=== PATIENT | male | born 1975 | race Two or more races ===

== ENCOUNTER → 2017-09-05 | Outpatient (CLI) | payer OTHER ==
[~2017-09-05] MED LIST: PROHANCE 279.3MG/ML 15ML VIAL (A9576) As Ordered; PROHANCE 279.3MG/ML 5ML VIAL (A9576) As Ordered
== END ==
LOC: M RAD 16:56
DX: R20.1 Hypoesthesia of skin (principal)
CPT/HCPCS: A9576

== ENCOUNTER → 2017-09-26 | Outpatient (CLI) | payer OTHER ==
[2017-09-26 13:01] LABS: RHEUMATOID FACTOR QUANT < 10.0 IU/ML (<15.0); TOTAL PROTEIN 6.7 GM/DL (6.4-8.2)
[2017-09-26 13:01] LABS: CPK CREATINE PHOSPHOKINASE 194 U/L (39-308)
[2017-09-26 13:48] LABS: ERYTHROCYTE SEDIMENTATION RATE 1 mm/hr (0-15)
[2017-09-26 14:34] LABS: VITAMIN B12 LEVEL 283 PG/ML
[2017-09-26 14:44] LABS: FOLATE 15.1 NG/ML
[2017-09-27 14:17] LABS: ANTI DOUBLE STRAND-DNA AB 1 IU/mL (0-9); ANTINUCLEAR ANTIBODIES DIRECT Positive (Negative); RNP ANTIBODIES 0.3 AI (0.0-0.9); SJOGREN'S ANTI SS-A <0.2 AI (0.0-0.9); SJOGREN'S ANTI SS-B <0.2 AI (0.0-0.9); SMITH ANTIBODIES 1.4 AI (0.0-0.9)
[2017-10-01 07:22] LABS: DRVV SCREEN 45.4 SEC
[2017-10-01 07:27] LABS: PTT LUPUS TYPE ANTICOAG SCREEN 1.1 (0-1.2)
[2017-10-01 14:12] LABS: ALBUMIN 4.36 GM/DL (3.29-5.55); ALPHA-1-GLOBULIN % 3.2 % (2.9-4.9); ALPHA-1-GLOBULINS 0.21 GM/DL (0.17-0.41); ALPHA-2-GLOBULINS 0.59 GM/DL (0.42-0.99); ALPHA-2-GLOBULINS % 8.8 % (7.1-11.8); BETA-1-GLOBULINS 0.36 GM/DL (0.28-0.60); BETA-1-GLOBULINS % 5.3 % (4.7-7.2); BETA-2-GLOBULINS 0.31 GM/DL (0.19-0.55); BETA-2-GLOBULINS % 4.7 % (3.2-6.5)
[2017-10-01 14:13] LABS: GAMMA GLOBULINS 0.87 GM/DL (0.65-1.58)
== END ==
LOC: M LAB 11:42
DX: G62.9 Polyneuropathy, unspecified (principal)
CPT/HCPCS: 82550

== ENCOUNTER 2019-06-16 16:13 | Inpatient (IN) | payer OTHER ==
[~2019-06-16] VITALS: Ht 180.3 cm; Wt 85.9 kg
[2019-06-16] MEDS ORDERED: ISOVUE-370 76% 100ML VIAL (Q9967) As Ordered ONE (16:29)
--- NOTE | 2019-06-16 16:59 | REP ---
Clinical: Acute cerebrovascular accident . Comparison: None . Findings: The mediastinum and cardiac silhouette are stable and within normal limits for portable technique. The lung casillas are clear without acute consolidation, effusion, or pneumothorax. Skeletal structures are intact. Impression: No acute cardiopulmonary process appreciated. Electronically Signed by Barak Ly MD 06/16/2019 04:50 P
--- NOTE | 2019-06-16 17:03 | REP ---
Head CT without contrast: History: Neurologic symptoms. Comparison study: Comparison brain MRI study is from September 05, 2017. CT findings: Bone window settings demonstrate an intact bony calvarium. There is no evidence of skull fracture or incidental bony calvarial lesion. The visualized paranasal sinuses appear clear. No intraorbital abnormality is seen. On soft tissue window setting images; the lateral, third, and fourth ventricles are normal in size and position. Pete-white differentiation pattern is normal above and below the tentorium. There are is no evidence of intracranial hemorrhage. No mass, edema, infarction, or midline shift is seen. No extra-axial fluid collection is appreciated. Impression: Negative noncontrast head CT. Electronically Signed by Javi Luther MD 06/16/2019 04:54 P
[2019-06-16 17:13] LABS: VENOUS BASE EXCESS 2.3 (-2.0-2.0); VENOUS HCO3 29.4 MEQ/L (23.0-27.0); VENOUS O2 SATURATION 72.1 % (60.0-80.0); VENOUS PARTIAL PRESSURE CO2 54.8 mmHg (38.0-50.0); VENOUS PH 7.347 UNITS (7.330-7.430); VENOUS STANDARD HCO3 25.8 MEQ/L; VENOUS TOTAL CO2 31.1 MEQ/L (24.0-28.0)
[2019-06-16 17:24] LABS: BASO % 0.2 % (0.0-1.0); EOS % 0.1 % (0.0-3.0); HEMATOCRIT 44.8 % (42.0-52.0); HEMOGLOBIN 14.8 g/dl (13.5-17.5); LYMPH # 1.1 10^3/uL (1.5-5.0); LYMPH % 11.4 % (24.0-44.0); MEAN CORPUSCULAR HEMOGLOBIN 28.1 pg (27.0-33.0); MONO # 0.4 10^3/uL (0.0-0.8); MONO % 3.9 % (0.0-5.0); NEUTROPHILS # 7.9 10^3/uL (1.5-8.5); NEUTROPHILS % 84.1 % (36.0-66.0); PLATELET COUNT, AUTOMATED 218 10^3/uL (150-450); RED BLOOD COUNT 5.27 10^6/uL (4.30-6.10); WHITE BLOOD COUNT 9.4 10^3/uL (4.0-10.0)
[2019-06-16 17:37] LABS: INR 1.17; PARTIAL THROMBOPLASTIN TIME 31.8 SECONDS (25.0-38.4); PROTHROMBIN TIME 14.6 SECONDS (11.8-14.0)
--- NOTE | 2019-06-16 17:42 | REP ---
CT angiography of the carotids with IV contrast: History: Altered mental status. CT contrast dose: 100 ml of intravenous Isovue 370. No comparison study. CT findings: The thoracic aorta arch is intact and homogeneously enhances. Great vessel origins are unremarkable as seen. There is some spray artifact from un-opacified blood in the venous structures in the upper mediastinum. The common carotid arteries are unremarkable bilaterally. The cervical segments of the vertebral arteries are intact and symmetric. Carotid bifurcations are clear bilaterally. There is no evidence to suggest carotid artery dissection or stenosis. The cervical internal carotid arteries are unremarkable and symmetric. Right internal jugular vein is smaller than the left but appears patent. Impression: Unremarkable carotid and cervical CT angiography. Electronically Signed by Javi Luhter MD 06/17/2019 07:46 A
--- NOTE | 2019-06-16 17:42 | REP ---
CT angiography of the brain with IV contrast: History: CVA. CT contrast dose: 100 ml of intravenous Isovue 370. Comparison MRI study of the brain September 05, 2017. Findings: Preliminary digital oil scout radiographs are remarkable. The distal vertebral arteries are patent bilaterally and codominant. Basilar artery appears widely patent. Posterior cerebral and superior cerebellar arteries are normal and symmetric. The distal internal carotid arteries are unremarkable. The anterior and middle cerebral arteries have an intact appearance bilaterally. There is no visible south aneurysm or arteriovenous malformation. Maximal intensity projection images show no other arterial abnormality. The straight sinus, sagittal sinus, and sigmoid sinuses are bilaterally patent. The right sigmoid sinus is hypoplastic compared to the left. The right internal jugular vein is quite a bit smaller than the left internal jugular vein. No other abnormality. Impression: Asymmetry of the sigmoid sinuses, left dominant in size compared to right. Otherwise unremarkable CT angiography of the brain with IV contrast. Electronically Signed by Javi Luther MD 06/17/2019 07:46 A
[2019-06-16 17:53] LABS: OSMOLALITY SERUM 289 MOSM/KG (275-295)
[2019-06-16] MEDS ORDERED: HALOPERIDOL 5 MG/ML VIAL (J1630) IM STA (17:55)
[2019-06-16] MEDS ORDERED: HALOPERIDOL 5 MG/ML VIAL (J1630) As Ordered ONE (17:56)
[2019-06-16] MEDS ORDERED: LORazepam 2 MG/ML VIAL (J2060) As Ordered ONE (17:57)
[2019-06-16] MEDS ORDERED: LORazepam 2 MG/ML VIAL (J2060) IM STA (17:57)
[2019-06-16 17:58] LABS: ACETAMINOPHEN LEVEL < 2.0 UG/ML (10.0-30.0); ALBUMIN 3.8 GM/DL (3.2-5.2); ALT/SGPT 36 U/L (12-78); BILIRUBIN,DIRECT 0.1 MG/DL (0.0-0.2); BILIRUBIN,TOTAL 0.6 MG/DL (0.2-1.0); BLOOD UREA NITROGEN 11 MG/DL (7-18); CALCIUM LEVEL 8.2 MG/DL (8.5-10.1); CARBON DIOXIDE LEVEL 28 MEQ/L (21-32); CHLORIDE LEVEL 104 MEQ/L (98-107); CK-MB VALUE MASS < 1.0 NG/ML (<3.6); CPK CREATINE PHOSPHOKINASE 85 U/L (39-308); CREATININE FOR GFR 1.07 MG/DL (0.70-1.30); ETHYL ALCOHOL (ETHANOL) < 0.003 % (0.000-0.010); GLOMERULAR FILTRATION RATE > 60.0 (>60); GLUCOSE, FASTING 107 MG/DL (70-100); MB/CK RELATIVE INDEX 1.18 (< OR =4); POTASSIUM SERUM 3.8 MEQ/L (3.5-5.1); SALICYLATE LEVEL < 1.7 MG/DL (5.0-30.0); SODIUM LEVEL 138 MEQ/L (136-145); THYROID STIMULATING HORMONE 0.491 uIU/ML (0.358-3.740); TOTAL PROTEIN 6.6 GM/DL (6.4-8.2); TROPONIN I < 0.02 NG/ML (< 0.10)
[2019-06-16] MEDS ORDERED: NS 1,000 ML IV ONE ×3 (18:00→21:15)
[2019-06-16 18:09] LABS: C REACTIVE PROTEIN QUANTITATIV < 0.30 MG/DL (0.00-0.30)
[2019-06-16] MEDS ORDERED: IBUP200T45 PO (18:51)
[2019-06-16] MEDS ORDERED: THRIVE PO (18:51)
[2019-06-16 19:09] LABS: ERYTHROCYTE SEDIMENTATION RATE 2 mm/hr (0-15)
[2019-06-16 19:56] LABS: INFLUENZA A AMPLIFICATION NEGATIVE (NEGATIVE); INFLUENZA B AMPLIFICATION NEGATIVE (NEGATIVE)
[2019-06-16] MEDS ORDERED: HALOPERIDOL 5 MG/ML VIAL (J1630) IV ONE (20:15)
--- NOTE | 2019-06-16 20:33 | ECGEPIP ---
[facility] - ED Test Date: 2019-06-16 Pat Name: CHERELLE VILA Department: Room: - Gender: Male Equity Manager: inocencia quijano : 1975 Requested By: MACY Joseph Order Number: [id number] Reading MD: Amy Edmond Measurements Intervals Alanson Rate: 101 P: 48 OR: 204 QRS: 69 QRSD: 106 T: 9 QT: 337 QTc: 439 Interpretive Statements SINUS TACHYCARDIA LEFT ATRIAL ENLARGEMENT INCOMPLETE RIGHT BUNDLE BRANCH BLOCK NO PRIOR Electronically Signed on 06-16-2019 20:33:42 EST by Amy Edmond
[2019-06-16 20:35] LABS: AMPHETAMINES LEVEL URINE NEGATIVE (NEGATIVE); BARBITURATES URINE NEGATIVE (NEGATIVE); BENZODIAZEPINES URINE NEGATIVE (NEGATIVE); CANNABINOIDS URINE NEGATIVE (NEGATIVE); COCAINE METABOLITE URINE NEGATIVE (NEGATIVE); METHADONE URINE NEGATIVE (NEGATIVE); OPIATES URINE NEGATIVE (NEGATIVE); PHENCYCLIDINE URINE NEGATIVE (NEGATIVE)
--- NOTE | 2019-06-16 20:59 | HPE ---
DATE OF ADMISSION: 06/16/2019 CHIEF COMPLAINT: Altered mental status. 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 this morning when the patient came to work. According to the medic at the bedside, the patient was very slow with his speech and not quite himself. He was slow but appropriate but worsened throughout the day. At around 3:30 p.m., the patient was noted to be shaking. When he was asked what he ate for breakfast or whether he ate, the patient said, "yes." The patient was not able to tell them his age and stated his date of instead. When they asked him whether he had been drinking water, the patient could not answer. His hand was very shaky. They called his and brought him to the emergency room. According to the at the bedside, on arrival in the emergency room, the patient was able to tell staff members that she was a relative and he recognized his children. He was normal yesterday around 11:00 p.m., ate dinner at home, left over [employer], which he heated up and had fruit and yogurt for snack before he went to bed. Last night, the patient was urinating three to four times, went to the bathroom. No confusion at that time. No gait instability. He has had no recent travel. No fever or chills according to the . The mentioned that he did not have any cough, shortness of breath, neck pain, diarrhea, nausea or vomiting. No changes in weight. On Saturday, the patient did have a headache and took some ibuprofen. This was not unusual, according to the . He denies any neck pain or neck rigidity. In the emergency room, per emergency room physician Dr. Brian Lebron, his neuro examination was normal. He had receptive aphasia and subsequent resulted expressive aphasia. The patient was found to have low grade temperature of 100.6. He would not cooperate to open his mouth for vital signs and therefore he received some Ativan when they tried to take this rectally. Since then, at 7:00 p.m., the patient has not been himself. CT of the head was unremarkable. No signs of stroke. CTA was also negative. The patient was dry. Urinalysis could not be obtained. Catheterization was attempted but had no yield. The patient received 1 liter of fluids. Complete blood count (CBC) and metabolic panel were within normal limits, as well as ammonia levels and liver function tests. Cardiac markers, C-reactive protein and sedimentation rate were negative. TSH was also normal. Per Dr. Grigsby, neurologist communications tower climber, obtain MRI of the brain, no lumbar puncture unless it is positive for possible encephalitis. PAST MEDICAL HISTORY: None. PAST SURGICAL HISTORY: The patient had stitches on the right forearm from when he slammed his arm through glass years ago. ALLERGIES: No known drug allergies. SOCIAL HISTORY: Lives with at home. 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 No alcohol or drug use. No smoking history. Originally from [place]. No recent travel. FAMILY HISTORY: Mother is schizophrenic and diabetic. Father with a history of bipolar. REVIEW OF SYSTEMS: Could not be obtained as the patient is confused. History is obtained from the patient's . PHYSICAL EXAMINATION: VITAL SIGNS: Temperature 100.6, pulse 102 sinus, respiratory rate 20, blood pressure 172/97, 99% on room air. The patient is not cooperative. He has receptive and expressive aphasia. Not answering questions. Just looks at his and coworker at the bedside. He is anicteric. No jaundice. The patient has no neck rigidity. He is not cooperative with examination. Unable to state his name, date of , where he is, season, year. Face is symmetric. The patient does not follow commands. He would not stick his tongue out. The patient is in four point restraints. LUNGS: Clear to auscultation. No wheezing or rales or rhonchi. HEART: S1, S2. Sinus tachycardia. No murmurs, rubs or gallops. ABDOMEN: Soft, nontender, nondistended. Positive bowel sounds times four quadrants. EXTREMITIES: No cyanosis, clubbing or pitting edema. The patient has a well healed scar on the right forearm from previous laceration. LABORATORY DATA: White count 9.4, hemoglobin 14, hematocrit 44, platelet count 218, 84% neutrophils, no bandemia, sed rate is 2. Sodium 138, potassium 3.9, chloride 104, bicarbonate 28, BUN 11, creatinine 1.07, glucose 107, lactic acid 1.4, calcium 8.2, total bilirubin 0.6, direct bilirubin 0.1, AST 40, ALT 36, alkaline phosphatase 62, ammonia 19, total CK 85, MB fraction less than 1, relative index 1.18, troponin less than 0.02, C-reactive protein less than 0.3, total protein 6.6, albumin 3.8, TSH 0.491, salicylate less than 1.7, acetaminophen less than 2, ethyl alcohol less than 0.003. Influenza A and B are negative. Glucose is 119. Two sets of blood cultures are pending. IMAGING STUDIES: 06/16/2019 CT negative non-contrast head CT. Chest x-ray 06/16/2019 showed no acute cardiopulmonary process. CTA of the brain showed asymmetry of the sigmoid sinuses, less dominant as that compared to the right, otherwise unremarkable CT of the brain with IV contrast. CTA of the neck showed normal carotid and cervical CT angiography. 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 CTA was negative. Dr. Baltazar Grigsby has been consulted. ACUTE ISSUES: 1. Altered mental status. The patient initially had receptive aphasia and now has expressive aphasia after Ativan has been given. CTA of the head and CT of the head were negative. Per Dr. Baltazar Grigsby, MRI of the brain and possible lumbar puncture if positive edema. normal ammonia level, bicarbonate, creatinine, esr, white count. cxr no pneumonia. ua sent. no lumbar puncture per Dr. Grigsby, unless abnormal MRI with edema. no empiric antibiotics or antivirals. check respiratory panel, urine toxicology screen. check RPR, DEISY. 2. Fever. Urinalysis and chest x-ray are negative. Influenza A and B are negative. Obtain respiratory panel. UA after 2 liters of intravenous bolus and culture if appropriate.Rule out meningitis with lumbar puncture if positive findings on MRI of the brain. 4. Hypertension. Most likely due to agitation. Intravenous Lopressor with holding parameters. 5. Abnormal EKG with incomplete right bundle branch block. No acute ischemic complaints. The patient's troponin is negative. 6. Deep vein thrombosis (DVT) prophylaxis. Compression stockings for now. The patient may need lumbar puncture at a later time. CODE STATUS: FULL CODE. MTDD
--- NOTE | 2019-06-16 21:52 | REPVR ---
PROCEDURE INFORMATION: Exam: MR Head Without Contrast Exam date and time: 06/16/2019 9:20 PM Age: 43 years old Clinical indication: Alteration of consciousness and altered mental status/memory loss and speech disturbance; Transient alteration of awareness; Confusion or disorientation; Aphasia; Patient HX: Total AMS; Additional info: AMS expressive aphasia TECHNIQUE: Imaging protocol: MR of the head without contrast. COMPARISON: MRI-Brain W/O FOLL BY WITH 09/05/2017 6:10 PM FINDINGS: Ventricles demonstrate normal size and configuration. Major vascular flow voids at the skull base are preserved. No extra-axial fluid collection. No midline shift or intracranial mass effect. No pathologic white-matter signal or cerebral edema. No diffusion restriction. Small right-sided mastoid effusion. Trace paranasal sinus mucosal disease. IMPRESSION: No acute intracranial abnormality. Electronically signed by: Sagar Zhou On 06/16/2019 21:52:20 PM
[2019-06-16] MEDS ORDERED: diphenhydrAMINE INJ 50MG/ML VIAL (J1200) As Ordered ONE (22:05)
[2019-06-16] MEDS: ACETAMINOPHEN 650 MG SUPP PR PRN (22:14)
[2019-06-16] MEDS: diphenhydrAMINE INJ 50MG/ML VIAL (J1200) IV PRN (22:14)
[2019-06-16] MEDS: HALOPERIDOL 5 MG/ML VIAL (J1630) IV PRN (22:14)
[2019-06-16] MEDS ORDERED: KETOROLAC 30 MG/ML VIAL (J1885) IV PRN (22:15)
[2019-06-16] MEDS: METOPROLOL 5 MG/5 ML VIAL IV SCH (22:17)
[2019-06-16 22:29] VITALS: BP 139/69
[2019-06-16 23:00] VITALS: BP 131/67
[2019-06-17] VITALS (8 sets, daily range): BP systolic 118–155; BP diastolic 65–96
[2019-06-17] MEDS: METOPROLOL 5 MG/5 ML VIAL IV SCH ×4 (03:00→20:48)
[2019-06-17] MEDS: HALOPERIDOL 5 MG/ML VIAL (J1630) IV PRN (03:37)
[2019-06-17] MEDS: diphenhydrAMINE INJ 50MG/ML VIAL (J1200) IV PRN ×2 (03:37→05:30)
--- NOTE | 2019-06-17 04:12 | IPNPDOC ---
Date Seen The patient was seen on 06/17/19. Progress Note Empiric IV ceftriaxone and IV acyclovir for possible acute meningitis -discussed with care companion neurologist, Dr. Grigsby, regarding fever 101.2 and AMS, despite negative meningeal signs. -decadron 4mg bid x 3days, iv ceftriaxone 30 minutes after decadron, iv acyclovir -per anesthesiologist care companion, anesthesia unable to do LP -urgent LP ordered, and empiric abx ordered. -droplet isolation precautions VS, I&O, 24H, Fishbone Vital Signs/I&O Vital Signs Date Time Temp Pulse Resp B/P (MAP) Pulse Ox O2 Delivery O2 Flow Rate FiO2 06/17/19 03:00 82 124/75 06/17/19 01:00 Room Air 06/17/19 00:00 100.3 92 06/16/19 22:29 18 I&O- Last 24 Hours up to 6 AM 06/17/19 06:00 Intake Total 1000 ml Balance 1000 ml Laboratory Data 24H LABS Laboratory Tests 2 06/16/19 16:29: Bedside Glucose (Misc Panel) 119H 06/16/19 16:55: Lactic Acid Level 1.4 06/16/19 16:56: Prothrombin Time 14.6H, Prothromb Time International Ratio 1.17, Activated Partial Thromboplast Time 31.8, Blood Gas Bicarbonate Standard 25.8, Venous Blood pH 7.347, Venous Blood Partial Pressure CO2 54.8H, Venous Blood Partial Pressure O2 39.0, Venous Blood Total Carbon Dioxide 31.1H, Venous Blood HCO3 29.4H, Venous Blood Oxygen Saturation 72.1, Venous Blood Base Excess 2.3H, Anion Gap 6L, Glomerular Filtration Rate > 60.0, Osmolality 289, Calcium Level 8.2L, Total Bilirubin 0.6, Direct Bilirubin 0.1, Aspartate Amino Transf (AST/SGOT) 14, Alanine Aminotransferase (ALT/SGPT) 36, Alkaline Phosphatase 62, Total Creatine Kinase 85, Creatine Kinase MB < 1.0, Creatine Kinase MB Relative Index 1.18, Troponin I < 0.02, C-Reactive Protein, Quantitative < 0.30, Total Protein 6.6, Albumin 3.8, Albumin/Globulin Ratio 1.36, Thyroid Stimulating Hormone (TSH) 0.491, Salicylates Level < 1.7L, Acetaminophen Level < 2.0L, Ethyl Alcohol Level < 0.003 06/16/19 16:57: Immature Granulocyte % (Auto) 0.3, Neutrophils (%) (Auto) 84.1H, Lymphocytes (%) (Auto) 11.4L, Monocytes (%) (Auto) 3.9, Eosinophils (%) (Auto) 0.1, Basophils (%) (Auto) 0.2, Neutrophils # (Auto) 7.9, Lymphocytes # (Auto) 1.1L, Monocytes # (Auto) 0.4, Eosinophils # (Auto) 0.0, Basophils # (Auto) 0.0, Nucleated Red Blood Cells % (auto) 0.0, Erythrocyte Sedimentation Rate 2, Ammonia 19 06/16/19 19:14: Influenza Type A (RT-PCR) NEGATIVE, Influenza Type B (RT-PCR) NEGATIVE 06/16/19 19:57: Urine Color YELLOW, Urine Appearance CLEAR, Urine pH 6.0, Urine Specific Donnelly >1.060H, Urine Protein NEGATIVE, Urine Glucose (UA) NEGATIVE, Urine Ketones NEGATIVE, Urine Blood NEGATIVE, Urine Nitrite NEGATIVE, Urine Bilirubin NEGATIVE, Urine Urobilinogen 0.2, Urine Leukocyte Esterase NEGATIVE, Urine WBC ( Auto) 0, Urine RBC (Auto) 8H, Urine Hyaline Casts (Auto) 0, Urine Bacteria (Auto) NEGATIVE, Urine Squamous Epithelial Cells 0, Urine Sperm (Auto) , Urine Opiates Screen NEGATIVE, Urine Methadone Screen NEGATIVE, Urine Barbiturates Screen NEGATIVE, Urine Phencyclidine Screen NEGATIVE, Urine Amphetamines Screen NEGATIVE, Urine Benzodiazepines Screen NEGATIVE, Urine Cocaine Metabolite Screen NEGATIVE, Urine Cannabinoids Screen NEGATIVE CBC/BMP Laboratory Tests 06/16/19 16:56 06/16/19 16:57 Microbiology Microbiology 06/16/19 Blood Culture, Received Pending 06/16/19 Respiratory Virus Panel (PCR) ([facility]) - Final, Complete 06/16/19 Blood Culture, Received Pending FREDY LÓPEZ MD Jun 17, 2019 04:12
[2019-06-17] MEDS ORDERED: ACYCLOVIR IV SCH (04:15)
[2019-06-17] MEDS ORDERED: FLUID PLACE HOLDER IV SCH (04:15)
[2019-06-17] MEDS: dexameTHASONE 4 MG/ML 1ML VIAL (J1100) IV SCH ×2 (04:18→17:29)
[2019-06-17] MEDS: NS 1,000 ML IV SCH ×3 (04:18→19:20)
[2019-06-17 04:24] LABS: BASO % 0.3 % (0.0-1.0); EOS # 0.2 10^3/uL (0.0-0.5); EOS % 2.1 % (0.0-3.0); HEMATOCRIT 44.8 % (42.0-52.0); HEMOGLOBIN 14.7 g/dl (13.5-17.5); LYMPH # 1.5 10^3/uL (1.5-5.0); LYMPH % 19.9 % (24.0-44.0); MEAN CORPUSCULAR HEMOGLOBIN 28.2 pg (27.0-33.0); MEAN CORPUSCULAR HGB CONC 32.8 g/dl (32.0-36.5); MEAN CORPUSCULAR VOLUME 85.8 fl (80.0-96.0); MONO # 0.5 10^3/uL (0.0-0.8); MONO % 6.2 % (0.0-5.0); NEUTROPHILS # 5.3 10^3/uL (1.5-8.5); NEUTROPHILS % 71.2 % (36.0-66.0); PLATELET COUNT, AUTOMATED 201 10^3/uL (150-450); RED BLOOD COUNT 5.22 10^6/uL (4.30-6.10); WHITE BLOOD COUNT 7.5 10^3/uL (4.0-10.0)
[2019-06-17] MEDS ORDERED: dexameTHASONE 4 MG/ML 1ML VIAL (J1100) IV SCH (04:30)
[2019-06-17 04:42] LABS: ERYTHROCYTE SEDIMENTATION RATE 2 mm/hr (0-15)
[2019-06-17] MEDS: cefTRIAXone SOD 2 GM in D5W MINI-BAG PLUS 50 ML IV SCH ×2 (04:46→17:29)
[2019-06-17 04:54] LABS: BLOOD UREA NITROGEN 10 MG/DL (7-18); C REACTIVE PROTEIN QUANTITATIV < 0.30 MG/DL (0.00-0.30); CALCIUM LEVEL 8.6 MG/DL (8.5-10.1); CARBON DIOXIDE LEVEL 28 MEQ/L (21-32); CHLORIDE LEVEL 113 MEQ/L (98-107); CHOLESTEROL LEVEL 155 MG/DL (<200); CHOLESTEROL RISK RATIO 3.522 (<5); CREATININE FOR GFR 1.19 MG/DL (0.70-1.30); GLOMERULAR FILTRATION RATE > 60.0 (>60); GLUCOSE, FASTING 105 MG/DL (70-100); HDL CHOLESTEROL 44 MG/DL (>40); LDL CHOLESTEROL 90 MG/DL (<100); NON-HDL-C 111 MG/DL; POTASSIUM SERUM 4.6 MEQ/L (3.5-5.1); SODIUM LEVEL 141 MEQ/L (136-145); TRIGLYCERIDES LEVEL 106 MG/DL (<150)
[2019-06-17] MEDS ORDERED: PROHANCE 279.3MG/ML 5ML VIAL (A9576) As Ordered ONE (05:08)
[2019-06-17] MEDS ORDERED: PROHANCE 279.3MG/ML 15ML VIAL (A9576) As Ordered ONE (05:09)
[2019-06-17] MEDS ORDERED: PROMETHAZINE INJ 25 MG/ML VIAL (J2550) As Ordered ONE (05:21)
[2019-06-17] MEDS ORDERED: PROMETHAZINE INJ 25 MG/ML VIAL (J2550) IV ONE (05:30)
[2019-06-17] MEDS ORDERED: HALOPERIDOL 5 MG/ML VIAL (J1630) IV ONE (05:30)
[2019-06-17] MEDS: LORazepam 2 MG/ML VIAL (J2060) IV PRN (05:30)
[2019-06-17] MEDS: ACYCLOVIR 1,000 MG in NS 250 ML IV SCH ×2 (06:01→13:04)
--- NOTE | 2019-06-17 06:13 | REPVR ---
PROCEDURE INFORMATION: Exam: MR Head With Contrast Exam date and time: 06/17/2019 5:58 AM Age: 43 years old Clinical indication: Altered mental status/memory loss; Confusion or disorientation; Patient HX: Aphasia, total AMS. PT was given 19cc prohance, PT was medicated multiple times in order to attempt scan, best images due to PT condition. Images sent to [facility] TECHNIQUE: Imaging protocol: MR of the head with intravenous contrast. Contrast material: PROHANCE; Contrast volume: 19 ml; Contrast route: 20G; COMPARISON: MRI-Brain without Contrast 06/16/2019 8:54 PM FINDINGS: Brain: Patient returned for postcontrast imaging to followup a normal noncontrast MRI performed 06/16/2018. Examination is extremely limited due to patient motion artifact. Ventricles: Normal. No ventriculomegaly. Bones/joints: Unremarkable. Soft tissues: Unremarkable. Sinuses: Normal as visualized. No acute sinusitis. Mastoid air cells: Normal as visualized. No mastoid effusion. Orbits: Unremarkable. IMPRESSION: Patient returned for postcontrast imaging to followup a normal noncontrast MRI performed 06/16/2018. Examination is extremely limited due to patient motion artifact. Within the limitations of this exam, no abnormal enhancement is identified. Electronically signed by: Vargas Langston On 06/17/2019 06:12:27 AM
--- NOTE | 2019-06-17 12:34 | REP ---
Clinical: Abdominal pain. Technique: Axial noncontrast images from the lung bases to the pubic symphysis with coronal and sagittal re-formations. Findings: Examination is limited by motion artifact and streak artifact from the upper extremities at the level of the lower chest/upper abdomen. Lung bases demonstrate mild bibasilar atelectasis and small pleural reactions. Liver, spleen, pancreas, gallbladder, bilateral adrenal glands and kidneys are grossly normal for noncontrast evaluation. The enteric system is without obstruction or acute inflammatory process. Normal terminal ileum and appendix are identified in the right lower quadrant. Fluid-filled loops of small bowel may suggest enteritis and should be correlated clinically. Green catheter identified within the bladder. Prostate gland and seminal vesicles are age-appropriate. Trace ascites in the pelvis. No free air. No adenopathy. Abdominal aorta without aneurysm. Musculoskeletal structures without focal abnormality. Impression: 1. Mild bibasilar atelectasis and small pleural reactions. 2. No significant abdominopelvic pathology is appreciated although mild enteritis cannot be excluded. Electronically Signed by Barak Ly MD 06/17/2019 12:26 P
--- NOTE | 2019-06-17 17:00 | IPNPDOC ---
Text Note Date of Service The patient was seen on 06/17/19. NOTE Subjective: -None verbal this morning -shifting positions a lot, appears uncomfortable -remains hemodynamically stable, afebrile, on room air Objective: GEN: appeats to be in a mild distress with constant shifting, well developed, well nourished man HEENT: NCAT, PERRLA, anicteric, non injected, dry MM Neck: no adenopathy or thyromegaly Pulm: CTAB Cardiac: RRR, no mrg Abd: normoactive, soft, unclear if grimacing with exam and shifting, no organomegaly or distention Ext: WWP, no Le edema, good peripheral pulses neuro: somnolent, opens eyes lightly to name but nonverbal, not following commands, moving all extremities spontaneously with full strength and good tone, negative kernig's and brudzinski. Labs: WBC 7.5, Hgb 14.7, Gct 44.8, platelets 201, Na 141, K 4.6, Cr 1.19, CRP 0.3, TSH 0.491, UA bland, flu panel negative, RPR negative, respiratory panel negative, tox screen negative, pending BCx. Imaging: CT and CTA head without abnormalities, MRI brain without contrast within normal limits, MRI brain w/ contrast imaging had too much motion defect Assessment: 43 yo active , previously healthy man who had acute mental status changes and is now functionally unresponsive with thus far grossly negative work up. 1. Altered mental status. -The patient initially had receptive aphasia and now has expressive aphasia after Ativan has been given. -CTA of the head and CT of the head were negative. -normal ammonia level, bicarbonate, creatinine, esr, white count. cxr no pneumonia. ua sent. Resp panel negative, U tox negative, RPR negative, DEISY pending. -MRI brain negative, best images were obtained prior to contrast, and had too much motion on the contrast phase, otherwise negative for acute process -pending LP with studies ordered -pending EEG 2. Fever. Urinalysis and chest x-ray are negative. Influenza A and B are negative. Respiratory panel negative. -Rule out meningitis and encephalitis with lumbar puncture -continue empiric ceftriaxone and acyclovir 4. Hypertension: in the setting of agitation. No history at baseline -IV metop with holding parameters. 5. Abnormal EKG with incomplete right bundle branch block. No acute ischemic complaints. With normal troponins. -continue on telemetry 6. Deep vein thrombosis (DVT) prophylaxis. Compression stockings for now. Pending lumbar puncture. Dispo: PCU, boarding in the ICU, pending evaluation by Dr. Grigsby, to evaluate if appropriate for transfer to [facility] VS,Fishbone, I+O VS, Fishbone, I+O Laboratory Tests 06/16/19 16:56 06/16/19 16:57 06/17/19 04:12 Vital Signs Date Time Temp Pulse Resp B/P (MAP) Pulse Ox O2 Delivery O2 Flow Rate FiO2 06/17/19 12:00 100.2 94 22 141/86 (104) 94 Room Air I&O- Last 24 Hours up to 6 AM 06/17/19 06:00 Intake Total 3000 ml Output Total 350 ml Balance 2650 ml SANIA MCNALLY MD Jun 17, 2019 17:00
[2019-06-17 17:49] LABS: APPEARANCE, CSF TURBID (CLEAR); COLOR, CSF RED (COLORLESS); CSF TUBE# CELL CNT TUBE 1
[2019-06-17 17:50] LABS: APPEARANCE, CSF CLEAR (CLEAR); COLOR, CSF COLORLESS (COLORLESS); CSF TUBE# CELL CNT TUBE 4
[2019-06-17 18:05] LABS: CSF TUBE# GLU TUBE 2; CSF TUBE# TP TUBE 2; GLUCOSE CSF 58 MG/DL (40-75); TOTAL PROTEIN,CSF 100 MG/DL (15-45)
[2019-06-17] MEDS ORDERED: AMPICILLIN SOD 2 GM in D5W MINI-BAG PLUS 100 ML IV SCH (19:00)
[2019-06-17] MEDS ORDERED: TUBERCULIN PPD 5 UNITS/0.1 ML ID ONE ×2 (21:00→22:00)
[2019-06-17] MEDS ORDERED: PPD DOCUMENTATION ENTRY MISC ID ONE (21:00)
[2019-06-18] VITALS (26 sets, daily range): BP systolic 106–205; BP diastolic 53–130; O2SAT 98
[2019-06-18] MEDS: NS 1,000 ML IV SCH ×3 (00:19→13:15)
[2019-06-18] MEDS: dexameTHASONE 4 MG/ML 1ML VIAL (J1100) IV SCH ×2 (03:03→15:58)
[2019-06-18] MEDS: METOPROLOL 5 MG/5 ML VIAL IV SCH ×2 (03:04→09:44)
[2019-06-18] MEDS: cefTRIAXone SOD 2 GM in D5W MINI-BAG PLUS 50 ML IV SCH ×2 (03:43→15:58)
[2019-06-18 04:54] LABS: HEMATOCRIT 45.5 % (42.0-52.0); HEMOGLOBIN 14.8 g/dl (13.5-17.5); MEAN CORPUSCULAR HEMOGLOBIN 27.5 pg (27.0-33.0); MEAN CORPUSCULAR HGB CONC 32.5 g/dl (32.0-36.5); MEAN CORPUSCULAR VOLUME 84.4 fl (80.0-96.0); PLATELET COUNT, AUTOMATED 205 10^3/uL (150-450); RED BLOOD COUNT 5.39 10^6/uL (4.30-6.10); WHITE BLOOD COUNT 9.7 10^3/uL (4.0-10.0)
[2019-06-18 05:13] LABS: BLOOD UREA NITROGEN 15 MG/DL (7-18); CALCIUM LEVEL 8.6 MG/DL (8.5-10.1); CARBON DIOXIDE LEVEL 28 MEQ/L (21-32); CHLORIDE LEVEL 104 MEQ/L (98-107); CREATININE FOR GFR 1.03 MG/DL (0.70-1.30); GLOMERULAR FILTRATION RATE > 60.0 (>60); GLUCOSE, FASTING 131 MG/DL (70-100); POTASSIUM SERUM 4.1 MEQ/L (3.5-5.1); SODIUM LEVEL 136 MEQ/L (136-145)
--- NOTE | 2019-06-18 08:08 | CR ---
DATE OF CONSULTATION: 06/17/2019 REFERRING PHYSICIAN: Dr. Madison Prakash REASON FOR CONSULTATION: Altered mental status. 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 She denies any illicit drug use. He has been going through increased stress at work. He went to work around 6:00 a.m. and his coworkers noted changes in his mental status. The patient was very slow with the speech and not himself. He was slow but appropriate that worsened throughout the day. Around 3:30 p.m. the patient was noted to be shaking. When he was asked about what he ate for breakfast the patient said yes only. The patient was unable to tell them his age and stated his date of instead. He could not answer if he was drinking water or not. His hands were trembling. His was contacted and he was brought to [facility] Emergency Department. He was able to tell the emergency staff members that his was a relative and he recognized his children. He was noted to be normal the night before. There was no gait instability or confusion at that time. He had no recent travels. There only have dogs as pets at home. In the emergency department he was noted to have mild fever of 100.6. He denied any headaches, neck pain, back pain, diarrhea, nausea, or vomiting. He had a headache on the weekend. In the emergency department there was concern that he had a stroke and receptive aphagia. His CT scan of head and CT angiography of head and neck were normal. His MRI scan of brain was ordered on emergency basis and was unremarkable. MRI brain with and without contrast was normal. He continued to remain to remain confused. DIAGNOSTIC STUDIES: As described above. CT scan of abdomen and pelvis were normal. Chest x-ray was normal. PCO2 was 54.8. PH was 7.3. PO2 was 39. Bicarb was 29.4. Urinalysis, urine tox screen were normal. Blood alcohol level was less than 0.003. WBCs were 7.5. ESR was 2 and CRP was less than 0.30. Metabolic profile and ammonia 19 were normal. TSH was 0.49. LDL was 90 and HDL was 44. His EEG earlier showed borderline - minimal encephalopathy. PAST MEDICAL HISTORY: None. PAST SURGICAL HISTORY: Stitches on right forearm. ALLERGIES: None. SOCIAL HISTORY: He is with his at home. He is an active duty soldier. He denies alcohol or illicit drugs. FAMILY HISTORY: Mother with history of schizophrenia and diabetes. Father with history of bipolar disorder. REVIEW OF SYSTEMS: All systems were reviewed with the patient's and were found to be noncontributory except as mentioned in the history of present illness. PHYSICAL EXAMINATION: Temperature 100.2 with maximum temperature 101.3 in the last 24 hours. Pulse 94, respiratory 22, blood pressure 141/86. Heart regular rate and rhythm. Lungs clear to auscultation. Abdomen soft, nontender, nondistended. No pedal edema. No musculoskeletal abnormalities. No rash. No signs of meningeal irritation. The patient is drowsy but arousable. He opens eyes to verbal command and sternal rub but does not follow commands. He resists opening of his eyes. He prevents arms falling on his face on both sides. He resists passive motion of his arms and legs. He is able to move all four extremities. He withdraws very strongly during plantar testing. No facial weakness. Pupils are 6 mm bilaterally reactive to light. Extraocular movements seem intact when he looks at his on either side of bed and myself. He does not follow commands. Sensory and cerebellar testing could not be performed. Gait could not be tested. ASSESSMENT: 1. Altered mental status. 2. There is concern for viral meningitis. 3. Herpes simplex infection would be less likely due to normal MRI scan of brain. 4. Await results of his spinal tap. 5. He is currently on ceftriaxone and acyclovir intravenously and will add ampicillin to cover him for Listeria until results of his spinal tap are available. We will also check West Nile virus, Eastern equine encephalitis antibodies, Powassan virus antibody although this is not a season for Powassan virus. We will also check PCR panel for viruses, bacteria and fungi. His influenza A and B antibody were negative. His RPR and Lyme antibody are pending. 6. We will continue supportive care and treat fever with Tylenol or ibuprofen.
--- NOTE | 2019-06-18 08:22 | EEG ---
DATE OF PROCEDURE:06/17/2019 DIAGNOSIS: Aphasia, rule out seizure, altered mental status. HISTORY: The patient is a 43-year-old male who was admitted at [facility] due to altered mental status. He is currently on ceftriaxone, acyclovir, Haldol, Benadryl, Ativan, promethazine, etc.. TECHNICAL DESCRIPTION: This digital EEG was recorded by 21 scalp ear and two EKG electrodes and was reviewed in bipolar and referential montages following reformatting in 10-20 international electrode placement system. INTERPRETATION: The patient was noted to be in drowsy state throughout this EEG. Background rhythm consisted of 8.06 - 8.61 Hz alpha activity and the patient was reactive to eye opening. No sleep was achieved. The patient remained confused, restless and unable to follow commands during this EEG. Hyperventilation and photic stimulation could not be performed. EKG revealed normal sinus rhythm. No focal, lateralizing or epileptiform abnormalities were seen. No relevant clinical activity was noted. CONCLUSION: This EEG in mostly drowsy and confused state is minimally - borderline abnormal due to presence of minimal background slowing consistent with minimal - borderline encephalopathy due to multiple potential causes including toxic, metabolic, infectious, medication related or multifocal structural brain abnormalities. No epileptiform abnormalities were seen. Clinical correlation is recommended.
[2019-06-18] MEDS: hydrALAZINE INJ 20 MG/ML VIAL IV SCH ×2 (15:58→20:35)
[2019-06-18] MEDS: ACETAMINOPHEN 650 MG SUPP PR PRN ×2 (15:59→23:40)
[2019-06-18] MEDS ORDERED: LORazepam 2 MG/ML VIAL (J2060) As Ordered ONE (16:49)
[2019-06-18] MEDS ORDERED: LORazepam 2 MG/ML VIAL (J2060) IV STA (16:50)
[2019-06-18] MEDS ORDERED: levETIRAcetam INJection 1,000 MG in D5W 100 ML IV STA (16:51)
[2019-06-18] MEDS ORDERED: ETOMIDATE INJ 20MG/10ML VIAL As Ordered ONE (17:03)
[2019-06-18] MEDS ORDERED: SUCCINYLCHOLINE INJ 200 MG/10 ML VIAL (J0330) As Ordered ONE (17:04)
[2019-06-18] MEDS ORDERED: PHENYTOIN INJ 250 MG/5 ML VIAL (J1165) As Ordered ONE (17:05)
[2019-06-18 17:06] LABS: ABG BASE EXCESS -16.6 (-2.0-2.0); ABG HCO3 10.1 MEQ/L (22.0-26.0); ABG O2 SATURATION 96.8 % (95.0-99.0); ABG PARTIAL PRESSURE CO2 27.8 mmHg (35.0-45.0); ABG PARTIAL PRESSURE O2 108.9 mmHg (75.0-100.0); ABG STANDARD HCO3 12.5 MEQ/L (22.0-26.0)
[2019-06-18 17:15] LABS: ABG pH (ARTERIAL) 7.179 UNITS (7.350-7.450)
[2019-06-18] MEDS ORDERED: PROPOFOL 1,000 MG/100 ML VIAL As Ordered ONE (17:21)
[2019-06-18] MEDS: LORazepam 2 MG/ML VIAL (J2060) IV PRN (17:27)
[2019-06-18] MEDS ORDERED: ETOMIDATE INJ 20MG/10ML VIAL IV STA (17:28)
[2019-06-18] MEDS ORDERED: SUCCINYLCHOLINE INJ 200 MG/10 ML VIAL (J0330) IV STA (17:28)
[2019-06-18] MEDS ORDERED: PHENYTOIN IV ONE ×2 (17:30→18:00)
[2019-06-18] MEDS ORDERED: NS IV ONE ×2 (17:30→18:00)
[2019-06-18] MEDS ORDERED: DEXTROSE 50% 50 ML SYRINGE IV PRN (18:00)
[2019-06-18] MEDS: HumaLOG INSULIN (NovoLOG) PER UNIT SC SCH ×2 (18:00→23:40)
[2019-06-18] MEDS ORDERED: GLUCAGON FOR INJ 1 MG VIAL (J1610) SC PRN (18:00)
[2019-06-18] MEDS ORDERED: LR 1,000 ML IV ONE (18:00)
[2019-06-18] MEDS ORDERED: GLUCOSE 4 GM CHEW TABLET PO PRN (18:00)
--- NOTE | 2019-06-18 18:07 | REP ---
Portable chest x-ray: Single view. History: Endotracheal tube placement. Comparison chest x-ray: June 16, 2019. Findings: Endotracheal tube is seen in good position with its tip at the level of proximal clavicles. An NG tube enters left upper quadrant. There is an infiltrate in the left lung base consistent with pneumonia. Right lung is clear. Heart is not enlarged. Impression: Infiltrate in the left lung base suggestive of pneumonia. Endotracheal and nasogastric tubes in good position. Electronically Signed by Javi Luther MD 06/18/2019 07:26 P
--- NOTE | 2019-06-18 18:29 | ROOPDOC ---
[facility] Report Of Operation Report of Operation DATE OF PROCEDURE: 06/18/2019 PROCEDURE: Endotracheal intubation. INDICATION: Acute Hypoxic Respiratory Failure CONSENT: Emergent need. Consent was implied. However present at bedside at time of emergent situation who verbally acknowledged patient's FULL CODE STATUS and was agreeable for intubation at that time PROCEDURE NOTE: A timeout was called prior to procedure verifying patient, procedure, indication, and necessary treatment. The patient with placed in supine position with head of the bed at 30. Patient was sedated with etomidate 30 mg and paralyzed with 100 mg of succinylcholine. An oral airway was placed and the patient was easily ventilated with an Ambu bag. A MAC 4 Glidescope was inserted into the oropharynx with adequate view of the vocal cords. A 8.5 ETT was visualized passing through the vocal cords. The stylette was removed. Bilateral breath sounds were heard. The ETT tube was placed at 23 cm at the teeth. Chest x-ray confirmed appropriate position above the sendy. The patient tolerated the procedure well without any immediate complications noted. YAKELIN REYES DO Jun 18, 2019 18:29
--- NOTE | 2019-06-18 18:39 | REPVR ---
PROCEDURE INFORMATION: Exam: CT Head Without Contrast Exam date and time: 06/18/2019 5:33 PM Age: 43 years old Clinical indication: Condition or disease; Convulsions or seizures and other: Meningitis; Additional info: Meningitis, status epilepticus TECHNIQUE: Imaging protocol: Computed tomography of the head without contrast. Radiation optimization: All CT scans at this facility use at least one of these dose optimization techniques: automated exposure control; mA and/or kV adjustment per patient size (includes targeted exams where dose is matched to clinical indication); or iterative reconstruction. COMPARISON: CT Head without contrast 06/16/2019 4:29 PM FINDINGS: Brain: Normal. No hemorrhage. Unremarkable white matter. No mass effect. Ventricles: Normal. No ventriculomegaly. Bones/joints: Unremarkable. No acute fracture. Sinuses: Visualized sinuses are unremarkable. No fluid levels. Mastoid air cells: Visualized mastoid air cells are well aerated. Soft tissues: Unremarkable. IMPRESSION: No acute intracranial abnormality. Electronically signed by: Marques Bansal On 06/18/2019 18:39:14 PM
[2019-06-18 18:42] LABS: ALBUMIN 3.4 GM/DL (3.2-5.2); ALT/SGPT 41 U/L (12-78); BILIRUBIN,TOTAL 0.9 MG/DL (0.2-1.0); BLOOD UREA NITROGEN 19 MG/DL (7-18); CALCIUM LEVEL 8.1 MG/DL (8.5-10.1); CARBON DIOXIDE LEVEL 18 MEQ/L (21-32); CHLORIDE LEVEL 104 MEQ/L (98-107); CREATININE FOR GFR 1.35 MG/DL (0.70-1.30); GLOMERULAR FILTRATION RATE > 60.0 (>60); GLUCOSE, FASTING 177 MG/DL (70-100); MAGNESIUM LEVEL 2.3 MG/DL (1.8-2.4); POTASSIUM SERUM 3.9 MEQ/L (3.5-5.1); SODIUM LEVEL 133 MEQ/L (136-145); TOTAL PROTEIN 6.5 GM/DL (6.4-8.2)
[2019-06-18 18:48] LABS: ABG BASE EXCESS -5.6 (-2.0-2.0); ABG HCO3 19.6 MEQ/L (22.0-26.0); ABG O2 SATURATION 98.4 % (95.0-99.0); ABG PARTIAL PRESSURE CO2 37.5 mmHg (35.0-45.0); ABG PARTIAL PRESSURE O2 127.7 mmHg (75.0-100.0); ABG STANDARD HCO3 19.9 MEQ/L (22.0-26.0); ABG TOTAL CO2 20.7 MEQ/L (22.0-29.0); ABG pH (ARTERIAL) 7.335 UNITS (7.350-7.450)
[2019-06-18] MEDS: propofoL 1,000 MG in IV 1 EA IV SCH (19:17)
--- NOTE | 2019-06-18 19:46 | IPNPDOC ---
Text Note Date of Service The patient was seen on 06/18/19. NOTE TRANSFER NOTE: BEING TRANSFERRED TO [facility] 43 yo active , previously healthy man who had acute mental status changes and became unresponsive with thus far grossly negative work up and otherwise stable neurological examination. Thus far head CT/CTA, MRI brain, ammonia, bicarb, Cr, ESR, WBC, CXR, resp panle, tox screen, RPR were negative. H e had an LP with extensive infectious work up that is pending and an EEG that showed slowing without epileptiform activity. Neurology has been consulted and recommended empiric antibiotics/antivirals and ongoing workup. Overnight, the resident moved to a negative pressure room for concern for TB men ingitis/encephalitis? without evidence of pulmonary disease that I discontinued. This afternoon he had a grandmal seizure that lasted mintues without ability to protect airway and he was intubated by the Dr. Davies and given some ativan and keppra loaded. Dr. Grigsby was also present and started him maintenance AEDs. His care is now being transferred to the [facility] as the primary team. VS,Davidbone, I+O VS, Davidbone, I+O Laboratory Tests 06/18/19 04:21 06/18/19 04:22 06/18/19 17:54 Vital Signs Date Time Temp Pulse Resp B/P (MAP) Pulse Ox O2 Delivery O2 Flow Rate FiO2 06/18/19 17:14 102 28 98 50 06/18/19 15:58 151/78 06/18/19 12:00 100.0 Room Air I&O- Last 24 Hours up to 6 AM 06/18/19 06:00 Intake Total 3440 ml Output Total 2875 ml Balance 565 ml SANIA MCNALLY MD Jun 18, 2019 19:46
[2019-06-18] MEDS: PHENYTOIN INJ 250 MG/5 ML VIAL (J1165) IV SCH (20:35)
[2019-06-18] MEDS: CHLORHEXIDINE GLUCONATE 0.12 % 15ML UDC (PERIDEX ORAL RINSE) MT SCH (20:35)
[2019-06-18] MEDS: DOXYCYCLINE HYCLATE 100 MG in D5W MINI-BAG PLUS 100 ML IV SCH (21:15)
[2019-06-18] MEDS: LR 1,000 ML IV SCH (21:37)
[2019-06-18] MEDS: ACYCLOVIR 1,000 MG in D5W 250 ML IV SCH (21:39)
--- NOTE | 2019-06-18 22:13 | CR.PDOC ---
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 Patient currently intubated and sedated. History obtained from chart review. Patient reportedly noted to be altered in the morning on day of admission when patient presented to work. Patient with progressive worsening mentation. During hospital stay, but with expressive communication, but able to track with his eyes. Today, patient was transferred to a new room, upon transfer he was noted to diffuse shaking of all four limbs consistent with tonic clonic seizures and eyes in fixed position. Seizure-like activity spontaneously stopped. However, patient persistent snoring respiration which concerning for continued and fixed pupils without eye tracking concerning for continued subclinical seizure activity. At this time, patient tachycardiac with heart rate in the 130-140s and SBP > 200. He was given 1000 Keppra and 1500mg Dilantan as well as a total of 3mg Ativan without a transient improvement in sonorous respirations. ABG notable for a significant metabolic acidosis with incomplete respiratory compensation. The decision was made to emergently intubate the patient for airway protection and started on propofol. Patient with improvement in heart rate and blood pressure after intubation. ALLERGIES: Please see below. HOME MEDICATIONS: Please see below. PAST MEDICAL HISTORY: None PAST SURGICAL HISTORY: None FAMILY HISTORY: Father: Bipolar Mother: Schizophrenia SOCIAL HISTORY: Active duty. Reportedly no significant EtOH, tobacco, or illicit drug use. REVIEW OF SYSTEMS: Unable to obtain due to current clinical condition PHYSICAL EXAMINATION: VITAL SIGNS: Please see below. PHYSICAL EXAMINATION: VITAL SIGNS: Please see below. GENERAL: Intubated and sedated HENT: Normocephalic, atraumatic EYES: Pupils dilated but reactive to light, no scleral icterus CARDIOVASCULAR: Tachycardic with sinus rhythm on the monitor, no lower extremity edema noted RESPIRATORY: Clear to auscultation bilaterally ABDOMINAL: Soft, nondistended, positive bowel sounds EXTREMITIES: Prior to sedation patient spontaneously moving all 4 extremities with significant strength NEUROLOGICAL: Sedated SKIN: Warm and dry LABORATORY DATA: Please see below. ASSESSMENT/PLAN: #New onset seizure - Possibly related to viral meningitis although etiology unclear at this time - Patient loaded with Keppra 1000 mg IV and daily and 1500 mg IV -Will continue Keppra 1000 mg IV twice a day and Dilantin 200 mg 3 times a day -Plan for EEG in the morning -We'll use propofol for sedation and give Ativan when necessary for seizure activity. Monitor triglycerides -Repeat set CT of the head without acute findings -Recent MRI of the brain unremarkable -Neurology following #Metabolic encephalopathy -Concern from viral meningitis -Lyme, CMV, EBV, HPV, VZV are pending -Will continue acyclovir and start doxycycline pending Lyme studies #Metabolic acidosis secondary to elevated lactate -Will give 1 L LR bolus and trend lactate -Avoid normal saline in the setting of metabolic acidosis and acute kidney injury -Elevated lactate likely secondary to seizures anticipate improvement #Acute kidney injury -Likely prerenal etiology related to the seizure activity -We'll give fluid bolus and then continue IV fluids with LR at 83 mL an hour -Patient with Green in place for monitor strict I's and O's #Hypertensive emergency -Elevated blood pressure likely secondary to seizures however cannot rule out altered mentation related to elevated blood pressure -Anticipate improvement with blood pressure while on sedation with propofol -We'll monitor closely Diet: Nothing by mouth given recent intubation, will start tube feeds with prolonged intubation GI/DVT prophylaxis: GI prophylaxis not indicated at this time. We'll consider starting subcutaneous heparin tomorrow if no plans for further LP L/T/D: 8.5 ETT at 23 at the teeth, Green, OG tube Drips: LR at 83 mL an hour, propofol CODE STATUS: Patient is full code which was confirmed by at bedside. , Lilia, is patient's surrogate decision maker. Dispo: We'll transfer patient from PCU to ICU status given recent intubation. We'll plan for each EEG in the morning if no additional seizure activity will consider sedation vacation and SPT Critical Care Time: 35 minutes. Time spent evaluating patient giving necessary medications and monitoring for effect in the setting of active seizures. Time spent independent of other billable procedures and other provider critical care time. [id number] Vital Signs/I&O Vital Signs Date Time Temp Pulse Resp B/P (MAP) Pulse Ox O2 Delivery O2 Flow Rate FiO2 06/18/19 21:00 87 20 115/58 (77) 99 Ventilator 50 06/18/19 20:00 100.2 I&O- Last 24 Hours up to 6 AM 06/18/19 06:00 Intake Total 3440 ml Output Total 2875 ml Balance 565 ml Laboratory Data Labs 24H Laboratory Tests 2 06/18/19 04:17: 06/18/19 04:21: Anion Gap 4L, Glomerular Filtration Rate > 60.0, Calcium Level 8.6 06/18/19 04:22: Nucleated Red Blood Cells % (auto) 0.0 06/18/19 16:59: Bedside Glucose (Misc Panel) 153H 06/18/19 17:00: Blood Gas Bicarbonate Standard 12.5L, Arterial Blood pH 7.179*L, Arterial Blood Partial Pressure CO2 27.8L, Arterial Blood Partial Pressure O2 108.9H, Arterial Blood Total CO2 11.0L, Arterial Blood HCO3 10.1L, Arterial Blood Base Excess - 16.6L, Arterial Blood Oxygen Saturation 96.8 06/18/19 17:51: Lactic Acid Level 8.6*H 06/18/19 17:54: Anion Gap 11, Glomerular Filtration Rate > 60.0, Calcium Level 8.1L, Magnesium Level 2.3, Total Bilirubin 0.9, Aspartate Amino Transf (AST/SGOT) 46H, Alanine Aminotransferase (ALT/SGPT) 41, Alkaline Phosphatase 51, Total Protein 6.5, Albumin 3.4, Albumin/Globulin Ratio 1.10 06/18/19 18:24: Blood Gas Bicarbonate Standard 19.9L, Arterial Blood pH 7.335L, Arterial Blood Partial Pressure CO2 37.5, Arterial Blood Partial Pressure O2 127.7H, Arterial Blood Total CO2 20.7L, Arterial Blood HCO3 19.6L, Arterial Blood Base Excess - 5.6L, Arterial Blood Oxygen Saturation 98.4 06/18/19 20:45: Lactic Acid Level 3.6*H CBC/BMP Laboratory Tests 06/18/19 04:21 06/18/19 04:22 06/18/19 17:54 Microbiology Microbiology 06/17/19 - Final, Complete 06/17/19 Gram Stain - Final, Resulted 06/17/19 CSF Culture, Resulted Pending 06/16/19 Blood Culture - Preliminary, Resulted No Growth after 48 hours. All Specime... 06/16/19 Respiratory Virus Panel (PCR) ([facility]) - Final, Complete 06/16/19 Blood Culture - Preliminary, Resulted No Growth after 48 hours. All Specime... Allergies Coded Allergies: No Known Allergies (Unverified , 06/16/19) Home Medications Scheduled [Thrive] , 1 DOSE PO DAILY, (Reported) Scheduled PRN Ibuprofen (Ibu-200) 200 Mg Tablet, 400 MG PO Q6H PRN for PAIN, (Reported) YAKELIN REYES DO Jun 18, 2019 21:53
[2019-06-19] VITALS (35 sets, daily range): BP systolic 100–162; BP diastolic 52–83; O2SAT 98
[2019-06-19 00:07] LABS: ANTI DOUBLE STRAND-DNA AB <1 IU/mL (0-9); ANTINUCLEAR ANTIBODIES DIRECT Positive (Negative); Lyme Disease IgG/IgM Antibodie <0.91 ISR (0.00-0.90); Lyme Disease IgM Ab Quantitati <0.80 index (0.00-0.79); RNP ANTIBODIES 0.4 AI (0.0-0.9); SJOGREN'S ANTI SS-A <0.2 AI (0.0-0.9); SJOGREN'S ANTI SS-B <0.2 AI (0.0-0.9); SMITH ANTIBODIES 1.7 AI (0.0-0.9)
[2019-06-19] MEDS: hydrALAZINE INJ 20 MG/ML VIAL IV SCH ×4 (02:58→20:45)
[2019-06-19] MEDS: dexameTHASONE 4 MG/ML 1ML VIAL (J1100) IV SCH (03:36)
[2019-06-19] MEDS: cefTRIAXone SOD 2 GM in D5W MINI-BAG PLUS 50 ML IV SCH ×2 (04:08→17:29)
[2019-06-19 04:28] LABS: HEMATOCRIT 48.7 % (42.0-52.0); HEMOGLOBIN 15.9 g/dl (13.5-17.5); MEAN CORPUSCULAR HEMOGLOBIN 27.4 pg (27.0-33.0); MEAN CORPUSCULAR HGB CONC 32.6 g/dl (32.0-36.5); MEAN CORPUSCULAR VOLUME 83.8 fl (80.0-96.0); PLATELET COUNT, AUTOMATED 186 10^3/uL (150-450); RED BLOOD COUNT 5.81 10^6/uL (4.30-6.10); WHITE BLOOD COUNT 17.3 10^3/uL (4.0-10.0)
[2019-06-19] MEDS: propofoL 1,000 MG in IV 1 EA IV SCH (04:42)
[2019-06-19] MEDS: levETIRAcetam INJection 1,000 MG in D5W 100 ML IV SCH ×2 (04:43→17:29)
[2019-06-19] MEDS: ACYCLOVIR 1,000 MG in D5W 250 ML IV SCH ×2 (05:04→13:20)
[2019-06-19] MEDS: HumaLOG INSULIN (NovoLOG) PER UNIT SC SCH ×3 (05:15→18:00)
[2019-06-19 05:41] LABS: ABG BASE EXCESS 2.5 (-2.0-2.0); ABG HCO3 24.6 MEQ/L (22.0-26.0); ABG O2 SATURATION 99.6 % (95.0-99.0); ABG PARTIAL PRESSURE O2 180.5 mmHg (75.0-100.0); ABG STANDARD HCO3 26.8 MEQ/L (22.0-26.0); ABG TOTAL CO2 25.5 MEQ/L (22.0-29.0); ABG pH (ARTERIAL) 7.517 UNITS (7.350-7.450)
[2019-06-19 06:07] LABS: ALBUMIN 3.5 GM/DL (3.2-5.2); ALT/SGPT 46 U/L (12-78); BILIRUBIN,TOTAL 0.9 MG/DL (0.2-1.0); BLOOD UREA NITROGEN 20 MG/DL (7-18); CALCIUM LEVEL 8.3 MG/DL (8.5-10.1); CARBON DIOXIDE LEVEL 28 MEQ/L (21-32); CHLORIDE LEVEL 104 MEQ/L (98-107); CREATININE FOR GFR 1.07 MG/DL (0.70-1.30); GLOMERULAR FILTRATION RATE > 60.0 (>60); GLUCOSE, FASTING 126 MG/DL (70-100); MAGNESIUM LEVEL 2.2 MG/DL (1.8-2.4); PHENYTOIN (DILANTIN) 16.8 UG/ML (10.0-20.0); POTASSIUM SERUM 4.1 MEQ/L (3.5-5.1); SODIUM LEVEL 139 MEQ/L (136-145); TOTAL PROTEIN 6.3 GM/DL (6.4-8.2); TRIGLYCERIDES LEVEL 152 MG/DL (<150)
[2019-06-19] MEDS: CHLORHEXIDINE GLUCONATE 0.12 % 15ML UDC (PERIDEX ORAL RINSE) MT SCH ×2 (08:29→20:45)
[2019-06-19] MEDS: PHENYTOIN INJ 250 MG/5 ML VIAL (J1165) IV SCH ×3 (08:29→20:45)
[2019-06-19] MEDS: ACETAMINOPHEN 650 MG SUPP PR PRN (08:30)
[2019-06-19] MEDS ORDERED: PANTOPRAZOLE 40MG INJ (PROTONIX) (C9113) IV SCH (09:00)
[2019-06-19] MEDS: DOXYCYCLINE HYCLATE 100 MG in D5W MINI-BAG PLUS 100 ML IV SCH ×2 (09:30→22:07)
[2019-06-19] MEDS: LR 1,000 ML IV SCH ×2 (09:30→22:08)
[2019-06-19] MEDS ORDERED: LR 1,000 ML IV ONE (10:30)
--- NOTE | 2019-06-19 12:13 | REP ---
Clinical: Small bowel obstruction. Technique: Two supine views of the abdomen and pelvis. Findings: Nasogastric tube identified in satisfactory position. Bowel gas pattern demonstrates mildly prominent air filled loops of small bowel measuring up to approximately 3.8 cm diameter. Fecal material and air is also identified throughout the colon. Findings may represent partial small bowel obstruction and/or ileus. Correlation and follow up may be warranted. No obvious free air to suggest perforation. Impression: Bowel gas pattern as described above is relatively nonspecific. Differential diagnosis may include ileus and partial obstruction. Electronically Signed by Barak Ly MD 06/19/2019 12:05 P
[2019-06-19] MEDS: metroNIDAZOLE 500 MG in IV 1 EA IV SCH (15:52)
[2019-06-19] MEDS ORDERED: ACETAMINOPHEN 650 MG SUPP PR SCH (16:00)
[2019-06-19] MEDS: POLYVINYL ALCOHOL OPHTH SOLN 15 ML(LIQUITEARS) OU SCH ×2 (17:29→20:50)
[2019-06-19] MEDS: ACETAMINOPHEN 650 MG SUPP PR SCH ×2 (17:32→22:00)
[2019-06-19] MEDS: dexmedeTOMidine 200 MCG in IV 1 EA IV SCH ×2 (18:47→23:01)
[2019-06-19] MEDS ORDERED: LORazepam 2 MG/ML VIAL (J2060) As Ordered ONE (20:30)
[2019-06-19] MEDS: LORazepam 2 MG/ML VIAL (J2060) IV PRN (20:33)
[2019-06-19] MEDS ORDERED: PPD DOCUMENTATION ENTRY MISC XX ONE (22:00)
--- NOTE | 2019-06-19 22:29 | IPNPDOC ---
Date Seen The patient was seen on 06/19/19. Progress Note SUBJECTIVE: Patient seen and examined. No acute events overnight. Patient remains intubated and sedated. No additional seizure activity. This morning it was noted that there is increased NG output with dark fecal-like material present. No signs of blood noted. Patient was given a sedation vacation and propofol was stopped. Patient remained largely unresponsive throughout the entire day however would occasionally stir and bite tube. Patient was able to tolerate pressure support a nd remained on pressure support throughout the day. 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 Patient reportedly noted to be altered in the morning of admission when patient presented to work. Patient with progressivelu worsening mentation. During hospital stay, but with expressive communication, but able to track with his eyes. On 06/18, patient was transferred to a new room, upon transfer he was noted to diffuse shaking of all four limbs consistent with tonic clonic seizures and eyes in fixed position. Seizure-like activity spontaneously stopped. However, patient persistent snoring respiration which concerning for continued and fixed pupils without eye tracking concerning for continued subclinical seizure activity. At this time, patient tachycardiac with heart rate in the 130-140s and SBP > 200. He was given 1000 Keppra and 1500mg Dilantan as well as a total of 3mg Ativan without a transient improvement in sonorous respirations. ABG notable for a significant metabolic acidosis with incomplete respiratory compensation. The decision was made to emergently intubate the patient for airway protection and started on propofol. Patient with improvement in heart rate and blood pressure after intubation. He remains intubated. OBJECTIVE REVIEW OF SYSTEMS: Unable to obtain due to current clinical condition PHYSICAL EXAMINATION: VITAL SIGNS: Please see below. PHYSICAL EXAMINATION: VITAL SIGNS: Please see below. GENERAL: Intubated and sedated HENT: Normocephalic, atraumatic EYES: Pupils equal round and reactive to light, no scleral icterus CARDIOVASCULAR: Regular rate and rhythm, no lower extremity edema noted RESPIRATORY: Clear to auscultation bilaterally ABDOMINAL: Soft, nondistended, positive bowel sounds, significant OG tube EXTREMITIES: With physical stimulation will spontaneously move all 4 extremities NEUROLOGICAL: Sedated SKIN: Warm and dry LABORATORY DATA: Please see below. ASSESSMENT/PLAN: #New onset seizure - Possibly related to viral etiology although unclear at this time - Continue Keppra 1000 mg IV twice a day and Dilantin 200 mg 3 times a day - No further seizure-like activity. We'll stop propofol at this time to allow f or sedation vacation and SPT. - If needed will start Precedex for sedation -Repeat MRI in the morning -Neurology following, discussed plan with Dr. Grigsby #Metabolic encephalopathy -Concern from viral meningitis -Lyme pending, CMV, EBV, HPV, VZV negative. Will also rule out auto-immune -Discontinue acyclovir - We'll utilize Precedex if needed for comfort on the ventilator. - We'll reintroduce propofol only if through seizures occur - Concern for underlying infection with increasing WBCs and fevers, however, no cultures positive at this time - Will schedule tylenol for 24 hours and start Flaygl for possible enteritis. - Check procalcitonin #Ileus - NGT low intermittent suction - Given possible enteritis on CTabdomen and increasing WBC, will add Flagyl #Acute kidney injury -Likely prerenal etiology related to the seizure activity -Monitor strict I's and O's - Check labs in the am Resolved hospital Problems: Hypertensive emergency Metabolic acidosis secondary to elevated lactate Diet: Nothing by mouth given recent intubation, will start tube feeds with prolonged intubation GI/DVT prophylaxis: GI prophylaxis not indicated at this time. We'll consider starting subcutaneous heparin tomorrow if no plans for further LP L/T/D: 8.5 ETT at 23 at the teeth, Green, OG tube Drips: LR at 83 mL an hour, propofol CODE STATUS: Patient is full code which was confirmed by at bedside. , Lilia, is patient's surrogate decision maker. Dispo: We'll transfer patient from PCU to ICU status given recent intubation. We'll plan for each EEG in the morning if no additional seizure activity will consider sedation vacation and SPT Critical Care Time: 35 minutes. Time spent evaluating patient giving necessary medications and monitoring for effect in the setting of active seizures. Time spent independent of other billable procedures and other provider critical care time. [id number] VS, I&O, 24H, Fishbone Vital Signs/I&O Vital Signs Date Time Temp Pulse Resp B/P (MAP) Pulse Ox O2 Delivery O2 Flow Rate FiO2 06/19/19 20:45 131/59 06/19/19 19:59 98 Ventilator 40 06/19/19 19:59 82 10 06/19/19 16:00 100.6 I&O- Last 24 Hours up to 6 AM 06/19/19 06:00 Intake Total 4106 ml Output Total 4025 ml Balance 81 ml Laboratory Data 24H LABS Laboratory Tests 2 06/18/19 22:41: Lactic Acid Followup at 4 Hours 2.2*H 06/18/19 23:24: Bedside Glucose (Misc Panel) 159H 06/19/19 04:02: Lactic Acid Followup at 4 Hours 3.6*H, Nucleated Red Blood Cells % (auto) 0.0 06/19/19 05:14: Bedside Glucose (Misc Panel) 124H 06/19/19 05:18: Anion Gap 7L, Glomerular Filtration Rate > 60.0, Calcium Level 8.3L, Magnesium Level 2.2, Total Bilirubin 0.9, Aspartate Amino Transf (AST/SGOT) 57H, Alanine Aminotransferase (ALT/SGPT) 46, Alkaline Phosphatase 56, Total Protein 6.3L, Albumin 3.5, Albumin/Globulin Ratio 1.25, Triglycerides Level 152H, Phenytoin (Dilantin) Level 16.8 06/19/19 05:26: Blood Gas Bicarbonate Standard 26.8H, Arterial Blood pH 7.517H, Arterial Blood Partial Pressure CO2 31.0L, Arterial Blood Partial Pressure O2 180.5H, Arterial Blood Total CO2 25.5, Arterial Blood HCO3 24.6, Arterial Blood Base Excess 2.5H, Arterial Blood Oxygen Saturation 99.6H 06/19/19 11:26: Bedside Glucose (Misc Panel) 135H 06/19/19 11:27: Lactic Acid Level 2.8*H 06/19/19 15:41: Lactic Acid Followup at 4 Hours 1.5 06/19/19 18:20: Bedside Glucose (Misc Panel) 146H CBC/BMP Laboratory Tests 06/19/19 04:02 06/19/19 05:18 Microbiology Microbiology 06/17/19 - Final, Complete 06/17/19 Gram Stain - Final, Complete 06/17/19 CSF Culture - Final, Complete 06/16/19 Blood Culture - Preliminary, Resulted No Growth after 72 hours. All specime... 06/16/19 Respiratory Virus Panel (PCR) ([facility]) - Final, Complete 2/18/20 Blood Culture - Preliminary, Resulted No Growth after 72 hours. All specime... YAKELIN REYES DO Jun 19, 2019 22:29
[2019-06-20] VITALS (33 sets, daily range): BP systolic 79–128; BP diastolic 41–74; O2SAT 99–100
[2019-06-20 00:22] LABS: HEMATOCRIT 41.7 % (42.0-52.0)
[2019-06-20 00:26] LABS: HEMOGLOBIN 13.6 g/dl (13.5-17.5)
[2019-06-20] MEDS: metroNIDAZOLE 500 MG in IV 1 EA IV SCH ×3 (01:27→15:18)
[2019-06-20] MEDS ORDERED: LORazepam 2 MG/ML VIAL (J2060) As Ordered ONE ×2 (01:55→16:54)
[2019-06-20] MEDS: LORazepam 2 MG/ML VIAL (J2060) IV PRN ×2 (01:57→17:00)
[2019-06-20] MEDS: hydrALAZINE INJ 20 MG/ML VIAL IV SCH ×4 (03:00→21:00)
[2019-06-20] MEDS: dexmedeTOMidine 200 MCG in IV 1 EA IV SCH ×3 (04:28→15:17)
[2019-06-20 05:25] LABS: HEMATOCRIT 40.1 % (42.0-52.0); HEMOGLOBIN 13.1 g/dl (13.5-17.5); MEAN CORPUSCULAR HEMOGLOBIN 28.4 pg (27.0-33.0); MEAN CORPUSCULAR HGB CONC 32.7 g/dl (32.0-36.5); MEAN CORPUSCULAR VOLUME 86.8 fl (80.0-96.0); PLATELET COUNT, AUTOMATED 152 10^3/uL (150-450); RED BLOOD COUNT 4.62 10^6/uL (4.30-6.10); WHITE BLOOD COUNT 9.4 10^3/uL (4.0-10.0)
[2019-06-20] MEDS: cefTRIAXone SOD 2 GM in D5W MINI-BAG PLUS 50 ML IV SCH ×2 (05:25→20:00)
[2019-06-20] MEDS: levETIRAcetam INJection 1,000 MG in D5W 100 ML IV SCH ×2 (05:25→18:43)
[2019-06-20] MEDS ORDERED: MIDAZOLAM INJ 2 MG/2 ML VIAL (J2250) IV ONE (05:30)
[2019-06-20] MEDS ORDERED: MIDAZOLAM INJ 2 MG/2 ML VIAL (J2250) As Ordered ONE (05:32)
[2019-06-20] MEDS: ACETAMINOPHEN 650 MG SUPP PR SCH ×2 (05:35→10:06)
[2019-06-20 05:52] LABS: ALBUMIN 2.9 GM/DL (3.2-5.2); ALT/SGPT 36 U/L (12-78); BILIRUBIN,TOTAL 0.7 MG/DL (0.2-1.0); BLOOD UREA NITROGEN 20 MG/DL (7-18); CARBON DIOXIDE LEVEL 32 MEQ/L (21-32); CHLORIDE LEVEL 106 MEQ/L (98-107); CREATININE FOR GFR 0.93 MG/DL (0.70-1.30); GLOMERULAR FILTRATION RATE > 60.0 (>60); GLUCOSE, FASTING 120 MG/DL (70-100); POTASSIUM SERUM 3.8 MEQ/L (3.5-5.1); SODIUM LEVEL 139 MEQ/L (136-145); TOTAL PROTEIN 5.3 GM/DL (6.4-8.2)
[2019-06-20] MEDS: HumaLOG INSULIN (NovoLOG) PER UNIT SC SCH ×4 (06:00→18:43)
[2019-06-20] MEDS: propofoL 1,000 MG in IV 1 EA IV SCH ×2 (06:20→17:50)
[2019-06-20] MEDS: LR 1,000 ML IV SCH (07:48)
[2019-06-20] MEDS ORDERED: BISACODYL 10 MG SUPP PR SCH (09:00)
[2019-06-20] MEDS: DOXYCYCLINE HYCLATE 100 MG in D5W MINI-BAG PLUS 100 ML IV SCH ×2 (10:04→21:59)
[2019-06-20] MEDS: PANTOPRAZOLE 40MG INJ (PROTONIX) (C9113) IV SCH ×2 (10:05→21:59)
[2019-06-20] MEDS: POLYVINYL ALCOHOL OPHTH SOLN 15 ML(LIQUITEARS) OU SCH ×3 (10:05→21:59)
[2019-06-20] MEDS: CHLORHEXIDINE GLUCONATE 0.12 % 15ML UDC (PERIDEX ORAL RINSE) MT SCH (10:06)
[2019-06-20] MEDS: PHENYTOIN INJ 250 MG/5 ML VIAL (J1165) IV SCH ×3 (10:07→21:58)
[2019-06-20 13:50] LABS: HEMATOCRIT 39.7 % (42.0-52.0)
[2019-06-20] MEDS ORDERED: PROHANCE 279.3MG/ML 5ML VIAL (A9576) As Ordered ONE (16:44)
[2019-06-20] MEDS ORDERED: PROHANCE 279.3MG/ML 15ML VIAL (A9576) As Ordered ONE (16:45)
[2019-06-20] MEDS ORDERED: methylPREDNISolone 1,000 MG, VIAL MATE ADAPTER 1 EACH in D5W 250 ML IV SCH (17:00)
[2019-06-20] MEDS ORDERED: PROPOFOL 1,000 MG/100 ML VIAL As Ordered ONE (17:12)
[2019-06-20] MEDS ORDERED: propofoL 1,000 MG in IV 1 EA IV SCH (17:15)
[2019-06-20] MEDS ORDERED: LR 1,000 ML IV ONE (18:15)
[2019-06-20 18:35] LABS: ABG BASE EXCESS 2.3 (-2.0-2.0); ABG HCO3 27.3 MEQ/L (22.0-26.0); ABG O2 SATURATION 97.9 % (95.0-99.0); ABG PARTIAL PRESSURE CO2 44.1 mmHg (35.0-45.0); ABG PARTIAL PRESSURE O2 104.6 mmHg (75.0-100.0); ABG STANDARD HCO3 26.5 MEQ/L (22.0-26.0); ABG TOTAL CO2 28.7 MEQ/L (22.0-29.0)
--- NOTE | 2019-06-20 20:36 | IPNPDOC ---
Date Seen The patient was seen on 06/20/19. Progress Note SUBJECTIVE: Patient seen and examined. No acute events overnight. Patient remains intubated and sedated on precedex. He is currently on pressure support and tolerating settings well. Patient is currently sedated and not arousable, however, per RN, patient was awake and appropriately following commands on her initial assessment. Patient to remain intubated for MRI. While on MRI table, patient was awake, sitting up, and trashing on the table. Assistance was called for and patient was sedated by anesthesia with propofol. Patient remained hemodynamically stable, however, was uanble to obtain MRI. 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 Patient reportedly noted to be altered in the morning of admission when patient presented to work. Patient with progressivelu worsening mentation. During hospital stay, but with expressive communication, but able to track with his eyes. On 06/18, patient was transferred to a new room, upon transfer he was noted to diffuse shaking of all four limbs consistent with tonic clonic seizures and eyes in fixed position. Seizure-like activity spontaneously stopped. However, patient persistent snoring respiration which concerning for continued and fixed pupils without eye tracking concerning for continued subclinical seizure activity. At this time, patient tachycardiac with heart rate in the 130-140s and SBP > 200. He was given 1000 Keppra and 1500mg Dilantan as well as a total of 3mg Ativan without a transient improvement in sonorous respirations. ABG notable for a significant metabolic acidosis with incomplete respiratory compensation. The decision was made to emergently intubate the patient for airway protection and started on propofol. Patient with improvement in heart rate and blood pressure after intubation. Patient was tapered off propofol and started on precedex. OBJECTIVE REVIEW OF SYSTEMS: Unable to obtain due to current clinical condition PHYSICAL EXAMINATION: VITAL SIGNS: Please see below. PHYSICAL EXAMINATION: VITAL SIGNS: Please see below. GENERAL: Intubated and sedated HENT: Normocephalic, atraumatic EYES: Pupils equal round and reactive to light, no scleral icterus CARDIOVASCULAR: Regular rate and rhythm, no lower extremity edema noted RESPIRATORY: Clear to auscultation bilaterally ABDOMINAL: Soft, nondistended, positive bowel sounds, decrease in OG output without blood noted EXTREMITIES: With physical stimulation will spontaneously move all 4 extremities NEUROLOGICAL: Sedated SKIN: Warm and dry LABORATORY DATA: Please see below. ASSESSMENT/PLAN: #New onset seizure - Possibly related to viral etiology although unclear at this time - Continue Keppra 1000 mg IV twice a day and Dilantin 200 mg 3 times a day - No further seizure-like activity - Will continue precedex while intubated. -Neurology following, discussed plan with Dr. Grigsby #Metabolic encephalopathy -Concern from viral meningitis -Lyme pending, CMV, EBV, HPV, VZV negative. Will also rule out auto-immune -Discontinue acyclovir - We'll utilize Precedex if needed for comfort on the ventilator. - We'll reintroduce propofol only if through seizures occur or if needed for agitation - Concern for underlying infection with increasing WBCs and fevers, however, no cultures positive at this time - Continue Flaygl - Check procalcitonin, procalcitonin low - MRI unable to be obtained #Ileus - NGT low intermittent suction, decreased output - Concern for bloody output so protonix BID started, monitor H/H - Continue flagyl Resolved hospital Problems: Hypertensive emergency Metabolic acidosis secondary to elevated lactate Acute kidney injury Diet: Nothing by mouth given recent intubation, will start tube feeds with prolonged intubation GI/DVT prophylaxis: Protonix BID, hold Heparin given concern for bloody NG output L/T/D: 8.5 ETT at 23 at the Norma lopez OG tube Drips: Precedex CODE STATUS: Patient is full code which was confirmed by at bedside. , Lilia, is patient's surrogate decision maker. Dispo: Continue to monitor in the ICU while intubated. Critical Care Time: 50 minutes. Time spent immediately at the patients bedsides, evaluating patient giving necessary medications Time spent independent of other billable procedures and other provider critical care time. [id number] VS, I&O, 24H, Fishbone Vital Signs/I&O Vital Signs Date Time Temp Pulse Resp B/P (MAP) Pulse Ox O2 Delivery O2 Flow Rate FiO2 06/20/19 12:05 98.6 65 15 106/55 (72) 99 Ventilator 40 I&O- Last 24 Hours up to 6 AM 06/20/19 06:00 Intake Total 3675.6 ml Output Total 3550 ml Balance 125.6 ml Laboratory Data 24H LABS Laboratory Tests 2 06/19/19 15:41: Lactic Acid Followup at 4 Hours 1.5 06/19/19 18:20: Bedside Glucose (Misc Panel) 146H 06/20/19 00:15: Bedside Glucose (Misc Panel) 114H 06/20/19 04:53: Nucleated Red Blood Cells % (auto) 0.0, Anion Gap 1L, Glomerular Filtration Rate > 60.0, Calcium Level 8.0L, Total Bilirubin 0.7, Aspartate Amino Transf (AST/SGOT) 35, Alanine Aminotransferase (ALT/SGPT) 36, Alkaline Phosphatase 45, Total Protein 5.3L, Albumin 2.9L, Albumin/Globulin Ratio 1.21 CBC/BMP Laboratory Tests 06/20/19 00:15 06/20/19 04:53 Microbiology Microbiology 06/17/19 - Final, Complete 06/17/19 Gram Stain - Final, Complete 06/17/19 CSF Culture - Final, Complete 06/16/19 Blood Culture - Preliminary, Resulted No Growth after 72 hours. All specime... 06/16/19 Respiratory Virus Panel (PCR) ([facility]) - Final, Complete 06/16/19 Blood Culture - Preliminary, Resulted No Growth after 72 hours. All specime... YAKELIN REYES DO Jun 20, 2019 12:27
[2019-06-21] VITALS (12 sets, daily range): BP systolic 114–143; BP diastolic 59–78
[2019-06-21] MEDS: metroNIDAZOLE 500 MG in IV 1 EA IV SCH ×4 (00:57→23:58)
[2019-06-21] MEDS: cefTRIAXone SOD 2 GM in D5W MINI-BAG PLUS 50 ML IV SCH (03:37)
[2019-06-21] MEDS: hydrALAZINE INJ 20 MG/ML VIAL IV SCH ×2 (03:37→08:03)
[2019-06-21] MEDS ORDERED: KETOROLAC 30 MG/ML VIAL (J1885) IV ONE (04:45)
[2019-06-21] MEDS: levETIRAcetam INJection 1,000 MG in D5W 100 ML IV SCH (04:51)
[2019-06-21 05:18] LABS: HEMATOCRIT 42.2 % (42.0-52.0); HEMOGLOBIN 13.5 g/dl (13.5-17.5); MEAN CORPUSCULAR HEMOGLOBIN 27.3 pg (27.0-33.0); MEAN CORPUSCULAR VOLUME 85.4 fl (80.0-96.0); PLATELET COUNT, AUTOMATED 155 10^3/uL (150-450); RED BLOOD COUNT 4.94 10^6/uL (4.30-6.10); WHITE BLOOD COUNT 10.2 10^3/uL (4.0-10.0)
[2019-06-21 05:40] LABS: BLOOD UREA NITROGEN 17 MG/DL (7-18); CALCIUM LEVEL 8.2 MG/DL (8.5-10.1); CARBON DIOXIDE LEVEL 28 MEQ/L (21-32); CHLORIDE LEVEL 107 MEQ/L (98-107); CREATININE FOR GFR 0.74 MG/DL (0.70-1.30); GLOMERULAR FILTRATION RATE > 60.0 (>60); GLUCOSE, FASTING 111 MG/DL (70-100); PHENYTOIN (DILANTIN) 18.8 UG/ML (10.0-20.0); POTASSIUM SERUM 3.4 MEQ/L (3.5-5.1); SODIUM LEVEL 141 MEQ/L (136-145)
[2019-06-21] MEDS: HumaLOG INSULIN (NovoLOG) PER UNIT SC SCH ×2 (06:00)
--- NOTE | 2019-06-21 08:19 | REP ---
Portable chest, 06:00 p.m., single AP view with the patient sitting: Comparison is 06/18/2019. Lung casillas are clear. The previous left basilar infiltrate has resolved. Cardiac size is normal. The hallie, mediastinum, skeletal structures are unremarkable. The endotracheal tube and nasogastric tube remain in satisfactory positions, unchanged. Impression: Lung casillas are clear. Electronically Signed by Davidson Patton MD 06/21/2019 08:11 A
[2019-06-21] MEDS: PHENYTOIN INJ 250 MG/5 ML VIAL (J1165) IV SCH (10:06)
[2019-06-21] MEDS: DOXYCYCLINE HYCLATE 100 MG in D5W MINI-BAG PLUS 100 ML IV SCH (10:06)
[2019-06-21] MEDS ORDERED: ACETAMINOPHEN TAB 650MG DOSE (2X325MG) PO PRN (10:15)
--- NOTE | 2019-06-21 16:47 | IPNPDOC ---
Date Seen The patient was seen on 06/21/19. Progress Note SUBJECTIVE: Patient seen and examined. Last night, patient was awake, alert, and following commands appropriately and therefore extubated to nasal cannula. No other events over night. Patient reports that he is feeling much better. He complains of a mild headache which was relieved with tylenol. He also reports hunger. He denies abdominal pain, nausea/vomiting. When asked, he states he doesn't remember coming to the hospital or his hospitalization. He states he does remember being confused prior to admission. 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 Patient reportedly noted to be altered in the morning of admission when patient presented to work. Patient with progressivelu worsening mentation. During hospital stay, but with expressive communication, but able to track with his eyes. On 06/18, patient was transferred to a new room, upon transfer he was noted to diffuse shaking of all four limbs consistent with tonic clonic seizures and eyes in fixed position. Seizure-like activity spontaneously stopped. However, patient persistent snoring respiration which concerning for continued and fixed pupils without eye tracking concerning for continued subclinical seizure activity. At this time, patient tachycardiac with heart rate in the 130-140s and SBP > 200. He was given 1000 Keppra and 1500mg Dilantan as well as a total of 3mg Ativan without a transient improvement in sonorous respirations. ABG notable for a significant metabolic acidosis with incomplete respiratory compensation. The decision was made to emergently intubate the patient for airway protection and started on propofol. Patient with improvement in heart rate and blood pressure after intubation. Patient was tapered off propofol and started on precedex. The morning of 06/20/2019 patient was awake, alert and following commands while intubated. Initially plan for extubation following MRI brain. While in MRI, patient because exceedingly agitated and MRI was aborted. Upon return to the ICU, patient again following commands. He was extubated on the evening of the 06/20/2019 OBJECTIVE REVIEW OF SYSTEMS: Constitutional: Denies fevers, chills Head Denies headache/dizziness ENT: Denies rhinorrhea, sore throat Lungs: Denies cough, shortness of breath Heart: Denies chest pain, palpitations Abdomen: Denies abdominal pain, nausea/vomiting Ext: Denies weakness Skin: Denies rashes PHYSICAL EXAMINATION: PHYSICAL EXAMINATION: VITAL SIGNS: Please see below. GENERAL: Alert and oriented x3, in no acute distress. well appearing HENT: Normocephalic, atraumatic EYES: Pupils equal round and reactive to light, no scleral icterus CARDIOVASCULAR: Regular rate and rhythm, no lower extremity edema RESPIRATORY: Clear to auscultation bilaterally ABDOMINAL: Soft, nontender, nondistended, positive bowel sounds EXTREMITIES: Normal range of motion and strength of all 4 extremities NEUROLOGICAL: Alert and oriented 3 without focal deficits noted SKIN: Warm and dry LABORATORY DATA: Please see below. ASSESSMENT/PLAN: #New onset seizure - Likely related to viral meningitis - Continue Keppra 1000 mg twice a day and Dilantin 200 mg 3 times a day - No further seizure-like activity - Neurology following, discussed plan with Dr. Grigsby #Metabolic encephalopathy, resolved -Concern from viral meningitis -Lyme pending, CMV, EBV, HPV, VZV negative. Will also rule out auto-immune -Discontinue Rocephin, doxycycline #Ileus, improved -We will continue Flagyl, however we'll likely discontinue tomorrow Resolved hospital Problems: Hypertensive emergency Metabolic acidosis secondary to elevated lactate Acute kidney injury Diet: Regular diet GI/DVT prophylaxis: Not indicated at this time L/T/D: Green to be related today Drips: None CODE STATUS: Patient is full code which was confirmed by at bedside. , Lilia, is patient's surrogate decision maker. Dispo: Will transfer to medical floor. Anticipate discharge home tomorrow or the following day [place] VS, I&O, 24H, [facility] Vital Signs/I&O Vital Signs Date Time Temp Pulse Resp B/P (MAP) Pulse Ox O2 Delivery O2 Flow Rate FiO2 06/21/19 15:45 98.6 76 18 133/78 (96) 95 Room Air 06/21/19 06:00 2.0 06/20/19 20:00 40 I&O- Last 24 Hours up to 6 AM 06/21/19 06:00 Intake Total 2186.2 ml Output Total 2245 ml Balance -58.8 ml Laboratory Data 24H LABS Laboratory Tests 2 06/20/19 18:16: Bedside Glucose (Misc Panel) 121H 06/20/19 18:26: Blood Gas Bicarbonate Standard 26.5H, Arterial Blood pH 7.410, Arterial Blood Partial Pressure CO2 44.1, Arterial Blood Partial Pressure O2 104.6H, Arterial Blood Total CO2 28.7, Arterial Blood HCO3 27.3H, Arterial Blood Base Excess 2.3H, Arterial Blood Oxygen Saturation 97.9 06/21/19 00:30: Bedside Glucose (Misc Panel) 87 06/21/19 04:25: Nucleated Red Blood Cells % (auto) 0.0, Anion Gap 6L, Glomerular Filtration Rate > 60.0, Calcium Level 8.2L, Phenytoin (Dilantin) Level 18.8 06/21/19 11:31: Bedside Glucose (Misc Panel) 176H CBC/BMP Laboratory Tests 06/21/19 04:25 Microbiology Microbiology 06/17/19 - Final, Complete 06/17/19 Gram Stain - Final, Complete 06/17/19 CSF Culture - Final, Complete 06/16/19 Blood Culture - Preliminary, Resulted No Growth after 72 hours. All specime... 06/16/19 Respiratory Virus Panel (PCR) ([facility]) - Final, Complete 06/16/19 Blood Culture - Preliminary, Resulted No Growth after 72 hours. All specime... YAKELIN REYES DO Jun 21, 2019 16:46
[2019-06-21] MEDS ORDERED: **hydrALAZINE** 10 MG TAB PO PRN (19:00)
[2019-06-21] MEDS ORDERED: DOCUSATE SODIUM 100 MG CAP PO PRN (19:00)
[2019-06-21] MEDS: levETIRAcetam 250MG TABLET (KEPPRA) PO SCH (20:58)
[2019-06-21] MEDS: PHENYTOIN ER 100 MG CAP PO SCH (20:58)
[2019-06-22 06:00] VITALS: BP 139/79
[2019-06-22] MEDS: metroNIDAZOLE (FLAGYL) 500 MG TAB PO SCH ×2 (06:16→13:17)
[2019-06-22 06:49] LABS: HEMATOCRIT 38.8 % (42.0-52.0); HEMOGLOBIN 12.9 g/dl (13.5-17.5); MEAN CORPUSCULAR HEMOGLOBIN 28.5 pg (27.0-33.0); MEAN CORPUSCULAR HGB CONC 33.2 g/dl (32.0-36.5); MEAN CORPUSCULAR VOLUME 85.7 fl (80.0-96.0); PLATELET COUNT, AUTOMATED 189 10^3/uL (150-450); RED BLOOD COUNT 4.53 10^6/uL (4.30-6.10); WHITE BLOOD COUNT 8.9 10^3/uL (4.0-10.0)
[2019-06-22 07:12] LABS: BLOOD UREA NITROGEN 18 MG/DL (7-18); CALCIUM LEVEL 7.6 MG/DL (8.5-10.1); CARBON DIOXIDE LEVEL 28 MEQ/L (21-32); CHLORIDE LEVEL 110 MEQ/L (98-107); CREATININE FOR GFR 0.99 MG/DL (0.70-1.30); GLOMERULAR FILTRATION RATE > 60.0 (>60); GLUCOSE, FASTING 123 MG/DL (70-100); MAGNESIUM LEVEL 2.1 MG/DL (1.8-2.4); POTASSIUM SERUM 3.1 MEQ/L (3.5-5.1); SODIUM LEVEL 143 MEQ/L (136-145)
--- NOTE | 2019-06-22 07:35 | REP ---
Lumbar puncture under fluoroscopic guidance. The procedure was performed by SCAR Sin, under the direct supervision of Dr. Luther. Procedure: The risks and benefits of the procedure were explained to the patient and informed consent was obtained both verbally and written. Directly prior to the start of the procedure, a formal timeout was completed in the procedure room. The patient was placed prone on the fluoroscopy table. The L 2/3 interspinous level was localized and confirmed fluoroscopically, and the skin was marked dorsally at this level. The skin was prepped and draped in the usual sterile fashion. 5 mL of 1% lidocaine 10 mg/ml was utilized for local anesthetic. An 22 gauge 3.5 inches spinal needle was advanced without significant difficulty into the cerebrospinal space at the L 2/3 interspinous level. 8 ml clear freely flowing cerebrospinal fluid was retrieved and sent to the laboratory for analysis. The patient tolerated the procedure well and there were no immediate complications. 0.3 minutes of fluoroscopy time was utilized for this procedure. Reviewed by SCAR Brunson 06/17/2019 05:22 P Electronically Signed by Javi Luther MD 06/18/2019 10:27 A
[2019-06-22] MEDS: levETIRAcetam 250MG TABLET (KEPPRA) PO SCH (08:45)
[2019-06-22] MEDS: PHENYTOIN ER 100 MG CAP PO SCH (08:46)
[2019-06-22 14:10] LABS: CMV QUANT DNA PCR (PLASMA) Negative (Negative); CYTOMEGALOVIRUS IgM ANTIBODY <30.0 AU/mL (0.0-29.9); EBV PCR QUAL WHOLE BLD Negative (Negative); EBV VIRAL CAPSID AG IgM <36.0 U/mL (0.0-35.9); HSV-1 DNA Negative (Negative); HSV-2 DNA Negative (Negative); VARICELLA ZOSTER VIRUS PCR Negative (Negative)
[2019-06-22] MEDS ORDERED: DILA100C PO (15:08)
[2019-06-22] MEDS ORDERED: KEPP250T5 PO (15:08)
--- NOTE | 2019-06-22 15:18 | DS.PDOC ---
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 Patient reportedly noted to be altered in the morning of admission when patient presented to work. Patient with progressively worsening mentation. On 06/18, patient was transferred to a new room, upon transfer he was noted to diffuse shaking of all four limbs consistent with tonic clonic seizures and eyes in fixed position. Seizure-like activity spontaneously stopped. However, patient persistent snoring respiration which concerning for continued and fixed pupils without eye tracking concerning for continued subclinical seizure activity. . He was given 1000 Keppra and 1500mg Dilantan as well as a total of 3mg Ativan without a transient improvement in sonorous respirations. ABG notable for a significant metabolic acidosis with incomplete respiratory compensation. The decision was made to emergently intubate the patient for airway protection and started on propofol. Patient with improvement in heart rate and blood pressure after intubation. Patient was tapered off propofol and started on precedex. The morning of 06/20/2019 patient was awake, alert and following commands while intubated. Initially plan for extubation following MRI brain. While in MRI, patient because exceedingly agitated and MRI was aborted. Upon return to the ICU, patient again following commands. He was extubated on the evening of the 06/20/2019. The patient got LP which showed that the patient was having high protein and normal glucose. Pointing towards viral meningitis. Though CT scan did not point towards any endocrine abnormality. The patient could have had this seizure related to viral meningitis and for that reason, Dr. Grigsby continue to see the patient and the patient currently is on thousand twice a day of Keppra as well as 200 twice a day of Dilantin. As the patient had the etiology of the seizures potentially the patient can be de- escalate from them and for that reason, he will go and see Dr. Grigsby as an outpatient. Various serologies including Lyme, CMV, EBV, HPV, VZV were negative. He is at his baseline, alert, oriented to time, place and person, in no distress, talking normally making good conversation and eye contact and will be discharged at her discussion with his as well and he is going to go home with follow-up with neurology in 1 week. He has been advised to refrain from driving on this until cleared by neurology. On the subsequent follow-up visit. PHYSICAL EXAMINATION: VITAL SIGNS: Please see below. GENERAL: Alert and oriented x3, in no acute distress. well appearing HENT: Normocephalic, atraumatic EYES: Pupils equal round and reactive to light, no scleral icterus CARDIOVASCULAR: Regular rate and rhythm, no lower extremity edema RESPIRATORY: Clear to auscultation bilaterally ABDOMINAL: Soft, nontender, nondistended, positive bowel sounds EXTREMITIES: Normal range of motion and strength of all 4 extremities NEUROLOGICAL: Alert and oriented 3 without focal deficits noted SKIN: Warm and dry Medications. As per discharge reconciliation medication list Activity as tolerated Diet. 2 g sodium diet Follow-up appointments. PCP in 1 week, nephrology in 1 week Condition on discharge. Patient is medically optimized for discharge Discharge disposition: Home Total time spent on this discharge including coordination of care, review of chart documentation and actual patient contact is around 35 minutes Vital Signs/I&Os Vital Signs Date Time Temp Pulse Resp B/P (MAP) Pulse Ox O2 Delivery O2 Flow Rate FiO2 06/22/19 06:00 99.0 78 18 139/79 (99) 94 Room Air 06/21/19 06:00 2.0 06/20/19 20:00 40 I&O- Last 24 Hours up to 6 AM 06/22/19 06:00 Intake Total 1940 ml Output Total 100 ml Balance 1840 ml Laboratory Data Labs 24H Laboratory Tests 2 06/22/19 06:16: Nucleated Red Blood Cells % (auto) 0.0, Anion Gap 5L, Glomerular Filtration Rate > 60.0, Calcium Level 7.6L, Magnesium Level 2.1 CBC/BMP Laboratory Tests 06/22/19 06:16 Microbiology Microbiology 06/17/19 - Final, Complete 06/17/19 Gram Stain - Final, Complete 06/17/19 CSF Culture - Final, Complete 06/16/19 Blood Culture - Final, Complete NO GROWTH AFTER 5 DAYS 06/16/19 Respiratory Virus Panel (PCR) ([facility]) - Final, Complete 06/16/19 Blood Culture - Final, Complete NO GROWTH AFTER 5 DAYS Discharge Medications Scheduled Levetiracetam (Keppra) 250 Mg Tablet, 1,000 MG PO BID Phenytoin Sodium Extended (Dilantin) 100 Mg Capsule, 200 MG PO BID [Thrive] , 1 DOSE PO DAILY, (Reported) Scheduled PRN Ibuprofen (Ibu-200) 200 Mg Tablet, 400 MG PO Q6H PRN for PAIN, (Reported) Allergies Coded Allergies: No Known Allergies (Unverified , 06/16/19) BENNY PICKARD MD Jun 22, 2019 15:18
== END 2019-06-22 15:55 | disposition home or self-care (01) | DRG 100 ==
LOC: EDBD 16:13 → M ED 16:13 → M ED INP 19:10 → ENRESERVTM 19:21 → ENRESERVDT 19:21 → M ICU 21:37 → M MS5PR 06-21 15:15
PROVIDERS: ADMIT General Practice; ATTEND Internal Medicine
PROC: 009U3ZX Drainage of Spinal Canal, Percutaneous Approach, Diagnostic (ICD-10-PCS; principal; 2019-06-17)
PROC: 5A1945Z Respiratory Ventilation, 24-96 Consecutive Hours (ICD-10-PCS; 2019-06-18)
DX: G40.401 Other generalized epilepsy and epileptic syndromes, not intractable, with status epilepticus (principal); J96.01 Acute respiratory failure with hypoxia; G93.41 Metabolic encephalopathy; E87.2 Acidosis; N17.9 Acute kidney failure, unspecified; K56.7 Ileus, unspecified; A87.9 Viral meningitis, unspecified; I10 Essential (primary) hypertension; I45.10 Unspecified right bundle-branch block; I16.0 Hypertensive urgency

== ENCOUNTER → 2019-07-07 | Outpatient (CLI) | payer OTHER ==
[~2019-07-07] MED LIST changes: +DILA100C PO; +IBUP200T45 PO; +KEPP250T5 PO; -PROHANCE 279.3MG/ML 15ML VIAL (A9576) As Ordered; -PROHANCE 279.3MG/ML 5ML VIAL (A9576) As Ordered; +THRIVE PO
[2019-07-07 15:51] LABS: BASO # 0.1 10^3/uL (0.0-0.2); BASO % 1.3 % (0.0-1.0); EOS # 0.2 10^3/uL (0.0-0.5); EOS % 3.8 % (0.0-3.0); HEMATOCRIT 46.7 % (42.0-52.0); HEMOGLOBIN 15.1 g/dl (13.5-17.5); LYMPH # 1.9 10^3/uL (1.5-5.0); LYMPH % 34.5 % (24.0-44.0); MEAN CORPUSCULAR HEMOGLOBIN 28.2 pg (27.0-33.0); MEAN CORPUSCULAR HGB CONC 32.3 g/dl (32.0-36.5); MEAN CORPUSCULAR VOLUME 87.3 fl (80.0-96.0); MONO # 0.3 10^3/uL (0.0-0.8); MONO % 5.6 % (0.0-5.0); NEUTROPHILS % 54.4 % (36.0-66.0); PLATELET COUNT, AUTOMATED 278 10^3/uL (150-450); RED BLOOD COUNT 5.35 10^6/uL (4.30-6.10); WHITE BLOOD COUNT 5.6 10^3/uL (4.0-10.0)
[2019-07-07 16:11] LABS: ALBUMIN 3.5 GM/DL (3.2-5.2); ALT/SGPT 56 U/L (12-78); BILIRUBIN,TOTAL 0.2 MG/DL (0.2-1.0); BLOOD UREA NITROGEN 16 MG/DL (7-18); CALCIUM LEVEL 8.6 MG/DL (8.5-10.1); CARBON DIOXIDE LEVEL 31 MEQ/L (21-32); CHLORIDE LEVEL 106 MEQ/L (98-107); CREATININE FOR GFR 1.01 MG/DL (0.70-1.30); GLOMERULAR FILTRATION RATE > 60.0 (>60); GLUCOSE, FASTING 92 MG/DL (70-100); PHENYTOIN (DILANTIN) 11.2 UG/ML (10.0-20.0); POTASSIUM SERUM 4.1 MEQ/L (3.5-5.1); SODIUM LEVEL 141 MEQ/L (136-145); TOTAL PROTEIN 6.8 GM/DL (6.4-8.2)
== END ==
LOC: M LAB 15:18
PROVIDERS: ATTEND Psychiatry & Neurology Neurology
DX: R50.9 Fever, unspecified (principal)